=== PATIENT | female | born 1975 | race Caucasian/White ===

== ENCOUNTER 2019-06-15 21:32 | Emergency (ER) | payer SELFPAY ==
[~2019-06-15] VITALS: Ht 165.1 cm; Wt 77.1 kg
[2019-06-15 22:10] VITALS: BP 123/72
--- NOTE | 2019-06-16 00:10 | ED.ADGEN ---
Past History Past Medical History: No Pertinent History Past Surgical History: Appendectomy Smoking: Less than 1pk/day Alcohol Use: Occasionally Drug Use: None Adult General Chief Complaint Chief Complaint ".. I got bad dental pain ... here in this tooth.. it fractured.. Dr. Lange put me on antibiotics.. but I don see him until next week.. the PCN does not seem to be helping... " HPI HPI Patient is a 44 year old female who presents with above and complaints of dental pain. Patient has multiple areas of dental decay. Patient has a fractured tooth #9. Has seen a dentist Dr. Lange and given a prescription of amoxicillin 500 mg 3 times a day. Patient does have follow-up appointment. Patient presents because of increased pain and inability to sleep tonight. No history immunosuppression. No history of trismus. Review of Systems Review of Systems Constitutional: Denies fever or chills [] Eyes: Denies change in visual acuity, redness, or eye pain [] HENT: Denies nasal congestion or sore throat []complaining of dental pain Respiratory: Denies cough or shortness of breath [] Cardiovascular: No additional information not addressed in HPI [] GI: Denies abdominal pain, nausea, vomiting, bloody stools or diarrhea [] : Denies dysuria or hematuria [] Musculoskeletal: Denies back pain or joint pain [] Integument: Denies rash or skin lesions [] Neurologic: Denies headache, focal weakness or sensory changes [] Endocrine: Denies polyuria or polydipsia [] All other systems were reviewed and found to be within normal limits, except as documented in this note. Family History Family History Noncontributory Current Medications Current Medications Current Medications Medications (Trade) Dose Ordered Sig/Zamzam Start Time Stop Time Status Last Admin Dose Admin Ceftriaxone Sodium (Rocephin Im) 1 gm 1X ONCE 06/16/19 01:15 06/16/19 01:16 DC 06/16/19 01:10 1 GM Ketorolac Tromethamine (Toradol Im) 60 mg 1X ONCE 06/16/19 01:15 06/16/19 01:16 DC 06/16/19 01:10 60 MG Oxycodone/ Acetaminophen (Percocet 5/325) 2 tab 1X ONCE 06/16/19 01:15 06/16/19 01:16 DC 06/16/19 01:10 2 TAB Allergies Allergies Allergies Coded Allergies Type Severity Reaction Last Updated Verified No Known Drug Allergies 09/23/13 No Physical Exam Physical Exam Constitutional: in acute distress, non-toxic appearance. [] HENT: Normocephalic, atraumatic, bilateral external ears normal, oropharynx moist, no oral exudates, nose normal. []Dental pain. Fractured tooth #9. Multiple areas of dental decay and gingivitis. Eyes: PERRLA, EOMI, conjunctiva normal, no discharge. [] Neck: Normal range of motion, no tenderness, supple, no stridor. [] Cardiovascular:Heart rate regular rhythm, no murmur [] Lungs & Thorax: Bilateral breath sounds equal at apex with scattered wheezes auscultation [] Abdomen: Bowel sounds normal, soft, no tenderness, no masses, no pulsatile masses. [] Skin: Warm, dry, no erythema, no rash. [] Back: No tenderness, no CVA tenderness. [] Extremities: No tenderness, no cyanosis, no clubbing, ROM intact, no edema. [] Neurologic: Alert and oriented X 3, normal motor function, normal sensory function, no focal deficits noted. [] Psychologic: Affect anxious, judgement normal, mood normal. [] Current Patient Data Vital Signs Vital Signs Date Time Temp Pulse Resp B/P (MAP) Pulse Ox O2 Delivery O2 Flow Rate FiO2 06/16/19 01:10 18 96 Room Air EKG EKG [] Radiology/Procedures Radiology/Procedures [] Course & Med Decision Making Course & Med Decision Making Pertinent Labs and Imaging studies reviewed. (See chart for details) Patient continue antibiotics as directed. Patient to take Tylenol or Ibuprofen pain. Patient take Vicoprofen up to 4 times a day for marked pain. Keep follow- up with Dr. Lange. [] Final Impression Final Impression 1. Fracture Tooth 9 2. Dental Carries[] Dragon Disclaimer Dragon Disclaimer This electronic medical record was generated, in whole or in part, using a voice recognition dictation system. Dragon Disclaimer This chart was dictated in whole or in part using Voice Recognition software in a busy, high-work load, and often noisy Emergency Department environment. It may contain unintended and wholly unrecognized errors or omissions. LENI DE DIOS MD Jun 16, 2019 00:10
[2019-06-16] MEDS ORDERED: HYDR-1179 PO (00:50)
[2019-06-16] MEDS ORDERED: KETOROLAC 60 MG/2 ML VIAL. IM ONE (01:15)
[2019-06-16] MEDS ORDERED: oxyCODONE/APAP 5/325 1 TAB TABLET PO ONE (01:15)
[2019-06-16] MEDS ORDERED: cefTRIAXone IM 1 GM VIAL IM ONE (01:15)
== END 2019-06-16 01:55 | disposition home or self-care (01) ==
LOC: ER 21:32
DX: S02.5XXA Fracture of tooth (traumatic), initial encounter for closed fracture (principal); K02.9 Dental caries, unspecified; F17.200 Nicotine dependence, unspecified, uncomplicated; X58.XXXA Exposure to other specified factors, initial encounter; Y93.89 Activity, other specified; Y92.89 Other specified places as the place of occurrence of the external cause; Y99.8 Other external cause status
CPT/HCPCS: 96372; 99284; J0696; J1885

== ENCOUNTER 2019-09-14 01:08 | Emergency (ER) | payer SELFPAY ==
[~2019-09-14] VITALS: Ht 162.6 cm; Wt 81.6 kg
[~2019-09-14 01:08] MED LIST: HYDR-1179 PO
--- NOTE | 2019-09-14 01:44 | PHYS DOC ---
Past History Past Medical History: Other Additional Past Medical Histor: epigastritis, ulcer Past Surgical History: Appendectomy, Hysterectomy Smoking: Less than 1pk/day Alcohol Use: Occasionally Drug Use: Cocaine Adult General Chief Complaint Chief Complaint: ABDOMINAL PAIN HPI HPI Patient is a 44-year-old female presents with presents with vomiting and diarrhea. This started approximately 2300. Watery stool, reports bilious emesis. Also has chest discomfort now. No worsening chest discomfort with exertion. Nothing makes the symptoms better or worse. She is a smoker. She reports using cocaine last week. She reports to drinking alcohol daily. Her entire abdomen hu rts. No relief with Pepto-Bismol. There is no respirophasic component to the chest pain. No difficulty breathing. No radiation of the discomfort. No diaphoresis. She reports getting the flu vaccine last [] Review of Systems Review of Systems Constitutional: Denies fever or chills [] Eyes: Denies change in visual acuity, redness, or eye pain [] HENT: Denies nasal congestion or sore throat [] Respiratory: Denies cough or shortness of breath [] Cardiovascular: No additional information not addressed in HPI [] GI: See history of present illness[] : Denies dysuria or hematuria [] Musculoskeletal: Denies back pain or joint pain [] Integument: Denies rash or skin lesions [] Neurologic: Denies headache, focal weakness or sensory changes [] Endocrine: Denies polyuria or polydipsia [] All other systems were reviewed and found to be within normal limits, except as documented in this note. Current Medications Current Medications Current Medications Medications (Trade) Dose Ordered Sig/Zamzam Start Time Stop Time Status Last Admin Dose Admin Dicyclomine HCl (Bentyl) 10 mg 1X ONCE 09/14/19 01:45 09/14/19 01:46 UNV Famotidine (Pepcid Vial) 20 mg 1X ONCE 09/14/19 01:45 09/14/19 01:46 UNV Prochlorperazine Edisylate (Compazine) 5 mg 1X ONCE 09/14/19 01:45 09/14/19 01:46 UNV Sodium Chloride 1,000 ml @ 1,000 mls/hr Q1H 09/14/19 01:31 09/14/19 02:30 UNV Allergies Allergies Allergies Coded Allergies Type Severity Reaction Last Updated Verified No Known Drug Allergies 09/23/13 No Physical Exam Physical Exam Constitutional: Well developed, well nourished, mild discomfort, non-toxic appearance. [] HENT: Normocephalic, atraumatic, bilateral external ears normal, oropharynx moist, no oral exudates, nose normal. [] Eyes: PERRLA, EOMI, conjunctiva normal, no discharge. [] Neck: Normal range of motion, no tenderness, supple, no stridor. [] Cardiovascular:Heart rate regular rhythm, no murmur [] Lungs & Thorax: Bilateral breath sounds clear to auscultation [] Abdomen: Bowel sounds normal, soft, diffuse tenderness, no rebound, no guarding, no rigidity, able to sit up and lie back without any difficulty, no masses, no pulsatile masses. [] Skin: Warm, dry, no erythema, no rash. [] Back: No tenderness, no CVA tenderness. [] Extremities: No tenderness, no cyanosis, no clubbing, ROM intact, no edema. [] Neurologic: Alert and oriented X 3, normal motor function, normal sensory function, no focal deficits noted. [] Psychologic: Affect normal, judgement normal, mood normal. [] Current Patient Data Vital Signs Vital Signs Date Time Temp Pulse Resp B/P (MAP) Pulse Ox O2 Delivery O2 Flow Rate FiO2 09/14/19 01:08 97.6 63 28 100 Room Air EKG EKG EKG shows a sinus rhythm at 62 bpm, normal axis, QTC of 455 ms, no ST elevation. Interpreted by me at 0125[] Radiology/Procedures Radiology/Procedures Acute abdominal series shows no evidence of obstruction, perforation, no wide mediastinum, no infiltrate, no effusion, no pneumothorax[] Course & Med Decision Making Course & Med Decision Making Pertinent Labs and Imaging studies reviewed. (See chart for details) Emergency department course: Patient arrived, was placed in bed, and tolerated exam well. She was transported to and from radiology with out any complication. She was given antiemetics and antispasmodics. She was oral intake tolerant while in the emergency department. Findings and plan were discussed with patient and family who voiced understanding. She was discharged in improved condition. Medical decision making: There is no evidence of pneumonia, pneumothorax, hypoxia, acute coronary syndrome, no esophageal rupture, GI obstruction, or perforation. No evidence of anemia. No evidence of oral intake intolerance.[] Dragon Disclaimer Dragon Disclaimer This electronic medical record was generated, in whole or in part, using a voice recognition dictation system. Departure Departure: Impression: Primary Impression: Nausea, vomiting, and diarrhea Additional Impression: Chest pain Disposition: 01 HOME, SELF-CARE Condition: IMPROVED Referrals: VERO DIAMOND MD (PCP) Follow-up in 2 days Patient Instructions: Chest Pain (Nonspecific), Diarrhea, Diet for Diarrhea, Adult, Nausea and Vomiting Additional Instructions: Drink plenty of fluids, frequent small sips. No fatty foods, no milk, and no pepper for the next 48 hours. For the next 48 hours eat a diet rich in carbohydrates with foods such as bananas, rice, applesauce, and toast. Follow-up with your regular doctor in 2 days. Do not use any drugs or medicines that are not prescribed for you. They may kill you! Return to the ER if unable to tolerate liquids, or any other concerns. Scripts Metoclopramide Hcl (REGLAN) 10 Mg Tablet 10 MG PO QID for nausea and vomiting, #30 TAB Prov: YOLIE VELAZQUEZ DO 09/14/19 Hyoscyamine Sulfate (LEVSIN) 0.125 Mg Tablet 0.125 MG PO QID for abdominal pain/cramping, #30 TAB Prov: YOLIE VELAZQUEZ DO 09/14/19 Problem Qualifiers Additional Impression: Chest pain Chest pain type: unspecified Qualified Codes: R07.9 - Chest pain, unspecified YOLIE VELAZQUEZ DO Sep 14, 2019 01:44
[2019-09-14] MEDS ORDERED: DICYCLOMINE 20 MG/2 ML AMPUL. IM ONE (01:45)
[2019-09-14] MEDS ORDERED: IV NORMAL SALINE 1,000ML 1,000 ML IV SCH (01:45)
[2019-09-14] MEDS ORDERED: FAMOTIDINE 20 MG/2 ML VIAL IVP ONE (01:45)
[2019-09-14] MEDS ORDERED: PROCHLORPERAZINE 10 MG/2 ML VIAL. IV ONE (01:45)
[2019-09-14 02:07] LABS: BASO % 0 % (0-3); EOS % 0 % (0-3); HEMATOCRIT 42.7 % (36.0-47.0); HEMOGLOBIN 14.7 g/dL (12.0-15.5); LYMPH # 0.6 x10^3/uL (1.0-4.8); LYMPH % 9 % (24-48); MEAN CORPUSCULAR HEMOGLOBIN 35 pg (25-35); MEAN CORPUSCULAR HGB CONC 35 g/dL (31-37); MEAN CORPUSCULAR VOLUME 100 fL (79-100); MONO # 0.3 x10^3/uL (0.0-1.1); MONO % 4 % (0-9); NEUT # 6.3 x10^3uL (1.8-7.7); NEUT % 87 % (31-73); PLATELET COUNT 263 x10^3/uL (140-400); RED BLOOD COUNT 4.26 x10^6/uL (3.50-5.40); RED CELL DISTRIBUTION WIDTH 12.7 % (11.5-14.5); WHITE BLOOD COUNT 7.3 x10^3/uL (4.0-11.0)
[2019-09-14 02:19] LABS: PREG TEST PT QUAL NEGATIVE (NEG)
--- NOTE | 2019-09-14 02:19 | EKG ---
[address] [address] Test Date: 2019-09-14 Test Time: 01:22:30 Pat Name: ISRAEL CHACON Department: Room: Gender: F Mica Layer: : 1975 Requested By: YOLIE VELAZQUEZ Order Number: [id number] Reading MD: Measurements Intervals [place] Rate: 62 P: -90 ID: [id number] QRS: 69 QRSD: 82 T: 35 QT: 446 QTc: 455 Interpretive Statements SUPRAVENTRICULAR RHYTHM QRS(T) CONTOUR ABNORMALITY CONSIDER INFERIOR MYOCARDIAL DAMAGE POSSIBLY ABNORMAL ECG RI6.01 No previous ECG available for comparison
[2019-09-14 02:30] LABS: ALBUMIN 3.8 g/dL (3.4-5.0); CALCIUM 8.7 mg/dL (8.5-10.1); CREATININE 0.9 mg/dL (0.6-1.0); POTASSIUM 3.6 mmol/L (3.5-5.1); TOTAL BILIRUBIN 0.5 mg/dL (0.2-1.0); TOTAL PROTEIN 7.8 g/dL (6.4-8.2)
[2019-09-14 03:28] LABS: INFLUENZA A PATIENT NEGATIVE (NEGATIVE); INFLUENZA B PATIENT NEGATIVE (NEGATIVE)
[2019-09-14] MEDS ORDERED: METO10TA81 PO (03:49)
[2019-09-14] MEDS ORDERED: HYOS0.1264 PO (03:49)
[2019-09-14 03:56] VITALS: BP 106/63
--- NOTE | 2019-09-14 04:29 | RAD ---
ACUTE ABDOMEN SERIES INDICATION: Vomiting, diarrhea, abdominal pain, chest pain. COMPARISON STUDY: None. FINDINGS: Lungs: Normal lung volume. No pulmonary mass or consolidation. The tracheobronchial tree and hilar structures are normal. Pleura: No pleural effusion or pneumothorax. Heart and Mediastinum: The cardiomediastinal silhouette is normal. The great vessels of the thorax are normal. Abdomen: Nonobstructive bowel gas pattern. No free air. Bones and Soft Tissues: The bones and soft tissues are within normal limits. IMPRESSION: Nonobstructive bowel gas pattern. No focal airspace disease. Electronically signed by: Christian Flynn MD (09/14/2019 4:25 AM) [facility]
== END 2019-09-14 04:02 | disposition home or self-care (01) ==
LOC: ER 01:08
DX: R11.2 Nausea with vomiting, unspecified (principal); R19.7 Diarrhea, unspecified; R07.89 Other chest pain; F17.200 Nicotine dependence, unspecified, uncomplicated
CPT/HCPCS: 36415; 74022; 80053; 83690; 83880; 84484; 84703; 85025; 85610; 85730; 87804; 93005; 96361; 96372; 96374; 96375; 99285; J0500; J0780; J3490; J7030

== ENCOUNTER 2019-12-04 10:42 | Emergency (ER) | payer SELFPAY ==
[~2019-12-04] VITALS: Ht 165.1 cm; Wt 81.0 kg
[~2019-12-04 10:42] MED LIST changes: +HYOS0.1264 PO; +METO10TA81 PO
[2019-12-04 10:55] VITALS: BP 105/66
[2019-12-04] MEDS ORDERED: IV NORMAL SALINE 1,000ML 1,000 ML IV ONE (11:00)
[2019-12-04] MEDS ORDERED: ONDANSETRON PF 4 MG/2 ML VIAL. IVP ONE (11:00)
[2019-12-04] MEDS ORDERED: KETOROLAC 15 MG/ML VIAL. IVP ONE (11:00)
[2019-12-04] MEDS ORDERED: FAMOTIDINE 20 MG/2 ML VIAL IVP ONE (11:00)
[2019-12-04] MEDS ORDERED: IOHEXOL 300 MG/ML 75 ML VIAL. IV ONE (11:15)
[2019-12-04 11:37] LABS: BASO % 1 % (0-3); EOS # 0.1 x10^3/uL (0.0-0.7); EOS % 3 % (0-3); HEMATOCRIT 44.1 % (36.0-47.0); HEMOGLOBIN 14.9 g/dL (12.0-15.5); LYMPH # 0.9 x10^3/uL (1.0-4.8); LYMPH % 26 % (24-48); MEAN CORPUSCULAR HEMOGLOBIN 34 pg (25-35); MEAN CORPUSCULAR HGB CONC 34 g/dL (31-37); MEAN CORPUSCULAR VOLUME 100 fL (79-100); MONO # 0.5 x10^3/uL (0.0-1.1); MONO % 14 % (0-9); NEUT # 1.9 x10^3uL (1.8-7.7); NEUT % 56 % (31-73); PLATELET COUNT 234 x10^3/uL (140-400); RED CELL DISTRIBUTION WIDTH 12.9 % (11.5-14.5); WHITE BLOOD COUNT 3.4 x10^3/uL (4.0-11.0)
[2019-12-04 11:53] LABS: ANION GAP 10 (6-14); BLOOD UREA NITROGEN 10 mg/dL (7-20); BUN/CREATININE RATIO 14 (6-20); CALCIUM 8.7 mg/dL (8.5-10.1); CARBON DIOXIDE 25 mmol/L (21-32); CHLORIDE 104 mmol/L (98-107); CREATININE 0.7 mg/dL (0.6-1.0); GFR 90.9; GLUCOSE 99 mg/dL (70-99); SODIUM 139 mmol/L (136-145)
--- NOTE | 2019-12-04 12:03 | PHYS DOC ---
Past History Past Medical History: No Pertinent History Additional Past Medical Histor: epigastritis, ulcer Past Surgical History: Appendectomy, Hysterectomy Smoking: Less than 1pk/day Additional Smoking Information: pack a day Alcohol Use: Heavy Additional Alcohol Information: 3-4 times a week Drug Use: Cocaine Adult General Chief Complaint Chief Complaint: ABDOMINAL PAIN HPI HPI Patient is a [age] year old [sex] who presents with [] Review of Systems Review of Systems Constitutional: Denies fever or chills [] Eyes: Denies change in visual acuity, redness, or eye pain [] HENT: Denies nasal congestion or sore throat [] Respiratory: Denies cough or shortness of breath [] Cardiovascular: No additional information not addressed in HPI [] GI: Denies abdominal pain, nausea, vomiting, bloody stools or diarrhea [] : Denies dysuria or hematuria [] Musculoskeletal: Denies back pain or joint pain [] Integument: Denies rash or skin lesions [] Neurologic: Denies headache, focal weakness or sensory changes [] Endocrine: Denies polyuria or polydipsia [] All other systems were reviewed and found to be within normal limits, except as documented in this note. Current Medications Current Medications Current Medications Medications (Trade) Dose Ordered Sig/Zamzam Start Time Stop Time Status Last Admin Dose Admin Famotidine (Pepcid Vial) 20 mg 1X ONCE 12/04/19 11:00 12/04/19 11:05 DC 12/04/19 11:24 20 MG Iohexol (Omnipaque 300 Mg/ml) 75 ml 1X ONCE 12/04/19 11:15 12/04/19 11:16 DC Ketorolac Tromethamine (Toradol 15mg Vial) 15 mg 1X ONCE 12/04/19 11:00 12/04/19 11:05 DC 12/04/19 11:25 15 MG Ondansetron HCl (Zofran) 4 mg 1X ONCE 12/04/19 11:00 12/04/19 11:05 DC 12/04/19 11:25 4 MG Sodium Chloride 1,000 ml @ 1,000 mls/hr 1X ONCE 12/04/19 11:00 12/04/19 11:59 DC 12/04/19 11:00 1,000 MLS/HR Allergies Allergies Allergies Coded Allergies Type Severity Reaction Last Updated Verified No Known Drug Allergies 09/23/13 No Physical Exam Physical Exam Constitutional: Well developed, well nourished, no acute distress, non-toxic appearance. [] HENT: Normocephalic, atraumatic, bilateral external ears normal, oropharynx moist, no oral exudates, nose normal. [] Eyes: PERRLA, EOMI, conjunctiva normal, no discharge. [] Neck: Normal range of motion, no tenderness, supple, no stridor. [] Cardiovascular:Heart rate regular rhythm, no murmur [] Lungs & Thorax: Bilateral breath sounds clear to auscultation [] Abdomen: Bowel sounds normal, soft, no tenderness, no masses, no pulsatile masses. [] Skin: Warm, dry, no erythema, no rash. [] Back: No tenderness, no CVA tenderness. [] Extremities: No tenderness, no cyanosis, no clubbing, ROM intact, no edema. [] Neurologic: Alert and oriented X 3, normal motor function, normal sensory function, no focal deficits noted. [] Psychologic: Affect normal, judgement normal, mood normal. [] Current Patient Data Vital Signs Vital Signs Date Time Temp Pulse Resp B/P (MAP) Pulse Ox O2 Delivery O2 Flow Rate FiO2 12/04/19 10:55 97.3 70 18 105/66 (79) 99 Room Air Lab Results Laboratory Tests Test 12/04/19 11:00 12/04/19 11:16 White Blood Count 3.4 x10^3/uL (4.0-11.0) L Red Blood Count 4.40 x10^6/uL (3.50-5.40) Hemoglobin 14.9 g/dL (12.0-15.5) Hematocrit 44.1 % (36.0-47.0) Mean Corpuscular Volume 100 fL (79-100) Mean Corpuscular Hemoglobin 34 pg (25-35) Mean Corpuscular Hemoglobin Concent 34 g/dL (31-37) Red Cell Distribution Width 12.9 % (11.5-14.5) Platelet Count 234 x10^3/uL (140-400) Neutrophils (%) (Auto) 56 % (31-73) Lymphocytes (%) (Auto) 26 % (24-48) Monocytes (%) (Auto) 14 % (0-9) H Eosinophils (%) (Auto) 3 % (0-3) Basophils (%) (Auto) 1 % (0-3) Neutrophils # (Auto) 1.9 x10^3uL (1.8-7.7) Lymphocytes # (Auto) 0.9 x10^3/uL (1.0-4.8) L Monocytes # (Auto) 0.5 x10^3/uL (0.0-1.1) Eosinophils # (Auto) 0.1 x10^3/uL (0.0-0.7) Basophils # (Auto) 0.0 x10^3/uL (0.0-0.2) Sodium Level 139 mmol/L (136-145) Potassium Level 4.0 mmol/L (3.5-5.1) Chloride Level 104 mmol/L (98-107) Carbon Dioxide Level 25 mmol/L (21-32) Anion Gap 10 (6-14) Blood Urea Nitrogen 10 mg/dL (7-20) Creatinine 0.7 mg/dL (0.6-1.0) Estimated GFR (Cockcroft-Gault) 90.9 BUN/Creatinine Ratio 14 (6-20) Glucose Level 99 mg/dL (70-99) Lactic Acid Level 0.6 mmol/L (0.4-2.0) Calcium Level 8.7 mg/dL (8.5-10.1) Magnesium Level Pending Total Bilirubin Pending Aspartate Amino Transferase (AST) Pending Alanine Aminotransferase (ALT) Pending Alkaline Phosphatase Pending Creatine Kinase Pending Creatine Kinase MB (Mass) Pending Creatine Kinase MB Relative Index Pending Troponin I Quantitative < 0.017 ng/mL (0-0.055) Total Protein Pending Albumin Pending Albumin/Globulin Ratio Pending Lipase Pending EKG EKG @1110 Sinus bradycardia at 53bpm, p wave inversion II, III, and aVF, NO ST elevation Radiology/Procedures Radiology/Procedures PROCEDURE: CT ABD PELV W/ IV CONTRST ONLY Exam performed: CT scan of the abdomen and pelvis with contrast Clinical Indication: Right upper quadrant pain Date of Service: 12/04/2019 comparison: Acute abdominal series from 09/14/2019 Technique: Contiguous helical acquisitions are obtained from the lung bases to the pelvis during intravenous administration of [75 cc of Omnipaque 300]. Sagittal and coronal reformatted images were obtained and reviewed. CT abdomen findings: The lung bases appear essentially clear. Visualized heart is normal. The liver,gall bladder and pancreas appears unremarkable. There is a low attenuating lesion in the spleen perhaps a cyst Both adrenal glands and bilateral kidneys appear normal with symmetric excretion of contrast via both kidneys. The small bowel loops appear nondilated and unremarkable. Aorta is normal in caliber. There is no retroperitoneal lymphadenopathy or mass lesions. No bowel related inflammatory stranding is noted. The urinary bladder is decompressed. Hysterectomy, no adnexal masses seen. Interrogation of bone windows demonstrates no obvious bony abnormality. Sagittal and coronal reformatted images were obtained and reviewed which demonstrate no additional findings. Impression abdomen and pelvis : 1. No acute intra-abdominal or pelvic process is detected. 2. Low attenuating nodule in the spleen perhaps a cyst or atypical hemangioma. Evaluation with left upper quadrant ultrasound on a nonemergent basis may confirm cystic nature of the nodule. PQRS Compliance Statement: One or more of the following individualized dose reduction techniques were utilized for this examination: 1. Automated exposure control 2. Adjustment of the mA and/or kV according to patient size 3. Use of iterative reconstruction technique Electronically signed by: Nithya Cervantes MD (12/04/2019 12:37 PM) [id number] Course & Med Decision Making Course & Med Decision Making Pertinent Labs and Imaging studies reviewed. (See chart for details) [] Dragon Disclaimer Dragon Disclaimer This electronic medical record was generated, in whole or in part, using a voice recognition dictation system. Departure Departure: Impression: Primary Impression: Abdominal pain Additional Impression: Abnormal CT scan Disposition: 01 HOME, SELF-CARE Condition: STABLE Referrals: PCP,NO (PCP) MIRNA CASH MD Patient Instructions: Abdominal Pain, [id number], Incidental Abdominal Radiological Finding Additional Instructions: You were given a copy of your recent CT results. Please follow closely with your doctor or a GI specialist for further evaluation. Scripts Famotidine (PEPCID) 20 Mg Tablet 1 TAB PO BID for Gastritis, #10 TAB Prov: UMESH DAVE DO 12/04/19 Hyoscyamine Sulfate (LEVSIN-SL) 0.125 Mg Tab.subl 0.125 MG SL Q4-6HRS PRN for PAIN, #14 TAB Prov: UMESH DAVE DO 12/04/19 Ondansetron (ONDANSETRON ODT) 4 Mg Tab.rapdis 1 TAB PO PRN Q6-8HRS PRN for NAUSEA, #16 TAB Prov: UMESH DAVE DO 12/04/19 Problem Qualifiers Primary Impression: Abdominal pain Abdominal location: lower abdomen, unspecified Qualified Codes: R10.30 - Lower abdominal pain, unspecified UMESH DAVE DO Dec 04, 2019 12:03
[2019-12-04 12:05] LABS: ALBUMIN 3.5 g/dL (3.4-5.0); ALBUMIN/GLOBULIN RATIO 0.9 (1.0-1.7); ALK PHOS 62 U/L (46-116); ALT (SGPT) 19 U/L (14-59); AST (SGOT) 15 U/L (15-37); LIPASE 94 U/L (73-393); MAGNESIUM 1.7 mg/dL (1.8-2.4); TOTAL BILIRUBIN 0.3 mg/dL (0.2-1.0); TOTAL PROTEIN 7.2 g/dL (6.4-8.2)
--- NOTE | 2019-12-04 12:40 | RAD ---
Exam performed: CT scan of the abdomen and pelvis with contrast Clinical Indication: Right upper quadrant pain Date of Service: 12/04/2019 comparison: Acute abdominal series from 09/14/2019 Technique: Contiguous helical acquisitions are obtained from the lung bases to the pelvis during intravenous administration of [75 cc of Omnipaque 300]. Sagittal and coronal reformatted images were obtained and reviewed. CT abdomen findings: The lung bases appear essentially clear. Visualized heart is normal. The liver,gall bladder and pancreas appears unremarkable. There is a low attenuating lesion in the spleen perhaps a cyst Both adrenal glands and bilateral kidneys appear normal with symmetric excretion of contrast via both kidneys. The small bowel loops appear nondilated and unremarkable. Aorta is normal in caliber. There is no retroperitoneal lymphadenopathy or mass lesions. No bowel related inflammatory stranding is noted. The urinary bladder is decompressed. Hysterectomy, no adnexal masses seen. Interrogation of bone windows demonstrates no obvious bony abnormality. Sagittal and coronal reformatted images were obtained and reviewed which demonstrate no additional findings. Impression abdomen and pelvis : 1. No acute intra-abdominal or pelvic process is detected. 2. Low attenuating nodule in the spleen perhaps a cyst or atypical hemangioma. Evaluation with left upper quadrant ultrasound on a nonemergent basis may confirm cystic nature of the nodule. PQRS Compliance Statement: One or more of the following individualized dose reduction techniques were utilized for this examination: 1. Automated exposure control 2. Adjustment of the mA and/or kV according to patient size 3. Use of iterative reconstruction technique Electronically signed by: Nithya Cervantes MD (12/04/2019 12:37 PM) [id number]
[2019-12-04] MEDS ORDERED: FAMO-63 PO (13:40)
[2019-12-04] MEDS ORDERED: HYOS0.1265 SL (13:40)
[2019-12-04] MEDS ORDERED: ONDA4TAB12 PO (13:40)
[2019-12-04 14:44] LABS: BILIRUBIN,URINE NEG (NEG); CLARITY,URINE CLEAR; COLOR,URINE YELLOW; GLUCOSE,URINE NEG (NEG)
[2019-12-04 14:45] LABS: NITRITE,URINE NEG (NEG); UROBILINOGEN,URINE 0.2 mg/dL (0.2 mg/dL)
--- NOTE | 2019-12-04 17:55 | EKG ---
[address] [address] Test Date: 2019-12-04 Test Time: 11:10:24 Pat Name: ISRAEL CHACON Department: Room: Gender: F Emergency Nurse: : 1975 Requested By: UMESH DAVE Order Number: [id number] Reading MD: Measurements Intervals [place] Rate: 53 P: -77 [place]: 112 QRS: 90 QRSD: 78 T: 66 QT: 444 QTc: 419 Interpretive Statements SUPRAVENTRICULAR RHYTHM OTHERWISE NORMAL ECG RI6.01 No previous ECG available for comparison
== END 2019-12-04 14:00 | disposition home or self-care (01) ==
LOC: ER 10:42
DX: R10.30 Lower abdominal pain, unspecified (principal); R10.11 Right upper quadrant pain; R93.89 Abnormal findings on diagnostic imaging of other specified body structures; F17.200 Nicotine dependence, unspecified, uncomplicated; F10.20 Alcohol dependence, uncomplicated; Y90.9 Presence of alcohol in blood, level not specified
CPT/HCPCS: 36415; 74177; 80053; 81003; 82553; 83605; 83690; 83735; 84484; 85025; 85610; 85730; 93005; 96374; 96375; 99285; J1885; J2405; J3010; J3490; Q9967; J7030

== ENCOUNTER 2020-02-11 16:13 | Emergency (ER) | payer SELFPAY ==
[~2020-02-11] VITALS: Ht 165.1 cm; Wt 81.7 kg
[~2020-02-11 16:13] MED LIST changes: +FAMO-63 PO; +HYOS0.1265 SL; +ONDA4TAB12 PO
[2020-02-11 17:10] VITALS: BP 99/60
--- NOTE | 2020-02-11 17:10 | RAD ---
Single view chest dated 02/11/2020: Comparison made to 09/23/2013. Clinical Indication: Cough and chest pain. Findings: Single upright portable exam of the chest was performed. Heart size and mediastinal contours are within normal limits given technique. The lungs are clear without evidence of focal consolidation. Mild bilateral hilar fullness, similar to prior study. No pleural effusion or pneumothorax. Impression:: No acute radiographic abnormality. Stable findings compared to 09/23/2013. Electronically signed by: Dennis Figueroa MD (02/11/2020 5:06 PM) [facility]
--- NOTE | 2020-02-11 17:24 | PHYS DOC ---
Past History Past Medical History: GERD Additional Past Medical Histor: epigastritis, ulcer Past Surgical History: Appendectomy, Hysterectomy Smoking: Cigarettes, Less than 1pk/day Alcohol Use: Heavy Additional Alcohol Information: 6x 24 oz beers "not every single day but 3-4 times week" per pt recall; last drink last night Drug Use: Cocaine Social History Narrative: used yesterday General Adult EDM: Chief Complaint: COUGH HPI: HPI: Patient is a 44-year-old female who presents to ER today for evaluation of a nonproductive cough that has been going on for several weeks. Patient is a heavy smoker. Patient also admitted abusing methamphetamine cocaine and marijuana. Patient deny any fever today. Patient complained of generalized weakness when she woke up this morning. Patient denies any abdominal pain. Patient also complains of diarrhea. Patient denies suicidal ideation, denies homicidal ideation. Patient denies that she been exposed to anybody who tested positive for COVID-19. Review of Systems: Review of Systems: Constitutional: Denies fever or chills Eyes: Denies change in visual acuity HENT: Denies nasal congestion or sore throat Respiratory: Positive for nonproductive cough and trouble breathing, Cardiovascular: Denies chest pain or edema GI: Denies abdominal pain, nausea, vomiting, bloody stools or diarrhea : Denies dysuria Musculoskeletal: Denies back pain or joint pain Integument: Denies rash Neurologic: Denies headache, focal weakness or sensory changes Endocrine: Denies polyuria or polydipsia Lymphatic: Denies swollen glands Psychiatric: Denies depression or anxiety Heart Score: Risk Factors: Risk Factors: DM, Current or recent (<one month) smoker, HTN, HLP, family history of CAD, obesity. Risk Scores: Score 0 - 3: 2.5% MACE over next 6 weeks - Discharge Home Score 4 - 6: 20.3% MACE over next 6 weeks - Admit for Clinical Observation Score 7 - 10: 72.7% MACE over next 6 weeks - Early Invasive Strategies Allergies: Allergies: Allergies Coded Allergies Type Severity Reaction Last Updated Verified No Known Drug Allergies 02/11/20 No Physical Exam: PE: Constitutional: Well developed, well nourished, no acute distress, non-toxic appearance. [] HENT: Normocephalic, atraumatic, bilateral external ears normal, oropharynx moist, no oral exudates, nose normal. [] Eyes: PERRLA, EOMI, conjunctiva normal, no discharge. [] Neck: Normal range of motion, no tenderness, supple, no stridor. [] Cardiovascular:Heart rate regular rhythm, no murmur [] Lungs & Thorax: Bilateral breath sounds clear to auscultation [] Abdomen: Bowel sounds normal, soft, no tenderness, no masses, no pulsatile masses. [] Skin: Warm, dry, no erythema, no rash. [] Back: No tenderness, no CVA tenderness. [] Extremities: No tenderness, no cyanosis, no clubbing, ROM intact, no edema. [] Neurologic: Alert and oriented X 3, normal motor function, normal sensory function, no focal deficits noted. [] Psychologic: Affect normal, judgement normal, mood normal. [] Current Patient Data: Vital Signs: Vital Signs Date Time Temp Pulse Resp B/P (MAP) Pulse Ox O2 Delivery O2 Flow Rate FiO2 02/11/20 16:13 98.4 80 18 127/66 (86) 96 Room Air EKG: EKG: [] EKG was done at 1703, heart rate of 69 bpm, normal sinus rhythm, no ST segment elevation. Normal QT interval. EKG was read by this physician Radiology/Procedures: Radiology/Procedures: [][address] [address] IMAGING REPORT Signed PATIENT: ISRAEL CHACON ACCOUNT: [id number] : 1975 LOCATION: ER AGE: 44 SEX: F EXAM STATUS: REG ER ORD. PHYSICIAN: JAMES HILL DO REASON: cough, chest pain PROCEDURE: CHEST AP ONLY Single view chest dated 02/11/2020: Comparison made to 09/23/2013. Clinical Indication: Cough and chest pain. Findings: Single upright portable exam of the chest was performed. Heart size and mediastinal contours are within normal limits given technique. The lungs are clear without evidence of focal consolidation. Mild bilateral hilar fullness, similar to prior study. No pleural effusion or pneumothorax. Impression:: No acute radiographic abnormality. Stable findings compared to 09/23/2013. Electronically signed by: Dennis Figueroa MD (02/11/2020 5:06 PM) [facility] [place] DICTATED AND SIGNED BY: DENNIS FIGUEROA MD DATE: 02/11/20 1748 CC: YARITZA CHIN; JAMES HILL DO ~ Course & Med Decision Making: Course & Med Decision Making Pertinent Labs and Imaging studies reviewed. (See chart for details) Patient is a 44-year-old female who presents to ER today for evaluation of nonproductive cough for 2 weeks. Patient is a smoker, chest x-ray did not show any acute problem, EKG was normal sinus rhythm. Patient was diagnosed with bronchitis. Patient was discharged home with Zithromax and prednisone. Dragon Disclaimer: Dragon Disclaimer: This electronic medical record was generated, in whole or in part, using a voice recognition dictation system. Departure Departure: Impression: Primary Impression: Acute bronchitis Disposition: 01 HOME/RESIDENCE PRIOR TO ADM Condition: STABLE Referrals: PCPYARITZA (PCP) follow up with your doctor next week Patient Instructions: Acute Bronchitis Additional Instructions: stop smoking. Scripts Prednisone (PREDNISONE) 20 Mg Tablet 1 TAB PO DAILY for bronchitis, #7 TAB Prov: JAMES HILL DO 02/11/20 Azithromycin (ZITHROMAX) 250 Mg Tablet 1 PKG PO UD for bronchitis, #6 TAB Prov: JAMES HILL DO 02/11/20 JAMES HILL DO February 11, 2020 17:24
[2020-02-11] MEDS ORDERED: PRED20TA PO (17:35)
[2020-02-11] MEDS ORDERED: AZIT250T PO (17:35)
--- NOTE | 2020-02-11 17:47 | EKG ---
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
== END 2020-02-11 17:31 | disposition home or self-care (01) ==
LOC: ER 16:13
DX: J20.9 Acute bronchitis, unspecified (principal); R19.7 Diarrhea, unspecified; K21.9 Gastro-esophageal reflux disease without esophagitis; F17.210 Nicotine dependence, cigarettes, uncomplicated; F15.10 Other stimulant abuse, uncomplicated; F12.10 Cannabis abuse, uncomplicated; F14.10 Cocaine abuse, uncomplicated; F10.20 Alcohol dependence, uncomplicated; Y90.9 Presence of alcohol in blood, level not specified
CPT/HCPCS: 71045; 93005; 99284

== ENCOUNTER 2020-07-18 15:26 | Emergency (ER) | payer SELFPAY ==
[~2020-07-18] VITALS: Ht 165.1 cm; Wt 86.2 kg
[~2020-07-18 15:26] MED LIST changes: +AZIT250T PO; +PRED20TA PO
[2020-07-18] MEDS ORDERED: IPRATRPIUM/ALBUTEROL 0.5/2.5MG 3 ML NEBU. NEB ONE (16:30)
[2020-07-18 16:34] LABS: BASO % 1 % (0-3); EOS # 0.1 x10^3/uL (0.0-0.7); EOS % 2 % (0-3); HEMOGLOBIN 15.5 g/dL (12.0-15.5); LYMPH # 1.6 x10^3/uL (1.0-4.8); LYMPH % 29 % (24-48); MEAN CORPUSCULAR HEMOGLOBIN 35 pg (25-35); MEAN CORPUSCULAR HGB CONC 34 g/dL (31-37); MEAN CORPUSCULAR VOLUME 103 fL (79-100); MONO # 0.6 x10^3/uL (0.0-1.1); MONO % 11 % (0-9); NEUT # 3.2 x10^3uL (1.8-7.7); NEUT % 57 % (31-73); PLATELET COUNT 284 x10^3/uL (140-400); RED BLOOD COUNT 4.49 x10^6/uL (3.50-5.40); RED CELL DISTRIBUTION WIDTH 12.9 % (11.5-14.5); WHITE BLOOD COUNT 5.5 x10^3/uL (4.0-11.0)
[2020-07-18 16:37] LABS: CALCIUM 8.7 mg/dL (8.5-10.1); CREATININE 0.9 mg/dL (0.6-1.0); GFR 67.7
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
[2020-07-18 16:45] LABS: ALBUMIN 3.8 g/dL (3.4-5.0); TOTAL BILIRUBIN 0.3 mg/dL (0.2-1.0); TOTAL PROTEIN 7.6 g/dL (6.4-8.2)
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
--- NOTE | 2020-07-18 17:20 | EKG ---
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
[2020-07-18] MEDS ORDERED: ONDANSETRON PF 4 MG/2 ML VIAL. ONE (17:37)
[2020-07-18] MEDS ORDERED: MORPHINE SULFATE 2 MG/ML DISP.SYRIN. ONE (17:37)
[2020-07-18 17:43] VITALS: BP 105/62
[2020-07-18] MEDS ORDERED: IV NORMAL SALINE 1,000ML 1,000 ML IV ONE (17:45)
[2020-07-18] MEDS ORDERED: ONDANSETRON PF 4 MG/2 ML VIAL. IVP ONE (17:45)
[2020-07-18] MEDS ORDERED: MORPHINE SULFATE 2 MG/ML DISP.SYRIN. IV ONE (17:45)
[2020-07-18] MEDS ORDERED: ALBU2.5V8 IH (18:08)
[2020-07-18] MEDS ORDERED: methylPREDNISolone SOD SUCC PF 125 MG/2 ML VIAL. IV ONE (18:15)
[2020-07-18 18:38] LABS: CLARITY,URINE CLEAR; COLOR,URINE YELLOW
[2020-07-18 18:39] LABS: BILIRUBIN,URINE NEG (NEG); GLUCOSE,URINE NEG (NEG); NITRITE,URINE POS (NEG); UROBILINOGEN,URINE 0.2 mg/dL (0.2 mg/dL)
[2020-07-18 18:40] LABS: BACTERIA,URINE FEW /HPF (0-FEW); RBC,URINE 0 /HPF (0-2); SQUAMOUS EPITHELIAL CELL,UR FEW /LPF
== END 2020-07-18 18:34 | disposition home or self-care (01) ==
LOC: ER 15:26
DX: J06.9 Acute upper respiratory infection, unspecified (principal); J44.9 Chronic obstructive pulmonary disease, unspecified; K21.9 Gastro-esophageal reflux disease without esophagitis; F17.210 Nicotine dependence, cigarettes, uncomplicated
CPT/HCPCS: 36415; 71045; 80053; 81001; 84484; 85025; 87086; 93005; 94640; 96361; 96374; 96375; 99285; J2270; J2405; J2930; J7030

== ENCOUNTER 2020-11-14 16:51 | Emergency (ER) | payer OTHER ==
[~2020-11-14] VITALS: Ht 165.1 cm; Wt 86.2 kg
[~2020-11-14 16:51] MED LIST changes: +ALBU2.5V8 IH
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
[2020-11-14] MEDS ORDERED: HYDROcodone/APAP 5/325MG 1 TAB TABLET PO ONE (19:00)
[2020-11-14] MEDS ORDERED: CYCLOBENZAPRINE 10 MG TABLET. PO ONE (19:00)
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
[2020-11-14] MEDS ORDERED: CYCL-331 PO (20:25)
[2020-11-14 20:30] VITALS: BP 130/88
== END 2020-11-14 20:33 | disposition home or self-care (01) ==
LOC: ER 16:51
DX: M54.2 Cervicalgia (principal); M54.9 Dorsalgia, unspecified; J44.9 Chronic obstructive pulmonary disease, unspecified; K21.9 Gastro-esophageal reflux disease without esophagitis; F17.210 Nicotine dependence, cigarettes, uncomplicated; Z90.89 Acquired absence of other organs; Z90.710 Acquired absence of both cervix and uterus; V98.8XXA Other specified transport accidents, initial encounter; Y93.89 Activity, other specified; Y92.89 Other specified places as the place of occurrence of the external cause; Y99.8 Other external cause status
CPT/HCPCS: 70450; 72125; 72220; 99285

== ENCOUNTER 2021-03-12 17:56 | Emergency (ER) | payer SELFPAY ==
[~2021-03-12] VITALS: Ht 165.1 cm; Wt 84.6 kg
[~2021-03-12 17:56] MED LIST changes: +CYCL-331 PO
[2021-03-12 18:07] VITALS: BP 116/66
--- NOTE | 2021-03-12 18:54 | RAD ---
Exam: Chest 2 views INDICATION: Cough, congestion TECHNIQUE: Frontal and lateral views of the chest Comparisons: None FINDINGS: The cardiomediastinal silhouette and pulmonary vessels are within normal limits. The lung and pleural spaces are clear. IMPRESSION: No acute cardiopulmonary process. Electronically signed by: Madeline Stahl MD (03/12/2021 6:51 PM) [facility]
[2021-03-12 18:58] LABS: BASO % 1 % (0-3); EOS # 0.2 x10^3/uL (0.0-0.7); EOS % 3 % (0-3); HEMATOCRIT 42.9 % (36.0-47.0); HEMOGLOBIN 14.6 g/dL (12.0-15.5); LYMPH # 2.2 x10^3/uL (1.0-4.8); LYMPH % 37 % (24-48); MEAN CORPUSCULAR HEMOGLOBIN 34 pg (25-35); MEAN CORPUSCULAR HGB CONC 34 g/dL (31-37); MEAN CORPUSCULAR VOLUME 100 fL (79-100); MONO # 0.7 x10^3/uL (0.0-1.1); MONO % 11 % (0-9); NEUT # 2.9 x10^3uL (1.8-7.7); NEUT % 48 % (31-73); PLATELET COUNT 273 x10^3/uL (140-400); RED BLOOD COUNT 4.28 x10^6/uL (3.50-5.40); RED CELL DISTRIBUTION WIDTH 13.1 % (11.5-14.5)
--- NOTE | 2021-03-12 19:11 | PHYS DOC ---
Past History Past Medical History: COPD, GERD Additional Past Medical Histor: epigastritis, ulcer (FIDEL DIAZ APRN) Past Surgical History: Appendectomy, Hysterectomy (FIDEL DIAZ APRN) Smoking: Cigarettes, Less than 1pk/day Alcohol Use: Occasionally Drug Use: Cocaine (FIDEL DIAZ APRN) General Adult EDM: Chief Complaint: COUGH HPI: HPI: Patient is a 45-year-old female presents with cough, shortness of breath for the past 5 days. Patient states "I have been coughing up white thick, mucus and I keep waking up at night". Patient denies fevers. Denies nausea/vomiting/diarrhea. Patient reports she smokes 1 to 2 packs a day depen ding on how much she has been drinking. Patient has history of ulcers. (FIDEL DIAZ APRN) Review of Systems: Review of Systems: Constitutional: Denies fever or chills Eyes: Denies change in visual acuity HENT: Denies nasal congestion or sore throat Respiratory: Reports cough and shortness of breath Cardiovascular: Denies chest pain or edema GI: Denies abdominal pain, nausea, vomiting, bloody stools or diarrhea : Denies dysuria Musculoskeletal: Denies back pain or joint pain Integument: Denies rash Neurologic: Denies headache, focal weakness or sensory changes Endocrine: Denies polyuria or polydipsia Lymphatic: Denies swollen glands Psychiatric: Denies depression or anxiety (FIDEL DIAZ APRN) Allergies: Allergies: Allergies Coded Allergies Type Severity Reaction Last Updated Verified No Known Drug Allergies 03/12/21 No (FIDEL DIAZ APRN) Physical Exam: PE: Constitutional: Well developed, well nourished, no acute distress, non-toxic appearance. [] HENT: Normocephalic, atraumatic, bilateral external ears normal, oropharynx moist, no oral exudates, nose normal. [] Eyes: PERRLA, EOMI, conjunctiva normal, no discharge. [] Neck: Normal range of motion, no tenderness, supple, no stridor. [] Cardiovascular:Heart rate regular rhythm, no murmur [] Lungs & Thorax: Bilateral breath sounds clear to auscultation [] Abdomen: Bowel sounds normal, soft, no tenderness, no masses, no pulsatile masses. [] Skin: Warm, dry, no erythema, no rash. [] Back: No tenderness, no CVA tenderness. [] Extremities: No tenderness, no cyanosis, no clubbing, ROM intact, no edema. [] Neurologic: Alert and oriented X 3, normal motor function, normal sensory function, no focal deficits noted. [] Psychologic: Affect normal, judgement normal, mood normal. [] (FIDEL DIAZ APRN) Current Patient Data: Labs: Laboratory Tests Test 03/12/21 18:42 White Blood Count 6.0 x10^3/uL (4.0-11.0) Red Blood Count 4.28 x10^6/uL (3.50-5.40) Hemoglobin 14.6 g/dL (12.0-15.5) Hematocrit 42.9 % (36.0-47.0) Mean Corpuscular Volume 100 fL (79-100) Mean Corpuscular Hemoglobin 34 pg (25-35) Mean Corpuscular Hemoglobin Concent 34 g/dL (31-37) Red Cell Distribution Width 13.1 % (11.5-14.5) Platelet Count 273 x10^3/uL (140-400) Neutrophils (%) (Auto) 48 % (31-73) Lymphocytes (%) (Auto) 37 % (24-48) Monocytes (%) (Auto) 11 % (0-9) H Eosinophils (%) (Auto) 3 % (0-3) Basophils (%) (Auto) 1 % (0-3) Neutrophils # (Auto) 2.9 x10^3uL (1.8-7.7) Lymphocytes # (Auto) 2.2 x10^3/uL (1.0-4.8) Monocytes # (Auto) 0.7 x10^3/uL (0.0-1.1) Eosinophils # (Auto) 0.2 x10^3/uL (0.0-0.7) Basophils # (Auto) 0.0 x10^3/uL (0.0-0.2) Vital Signs: Vital Signs Date Time Temp Pulse Resp B/P (MAP) Pulse Ox O2 Delivery O2 Flow Rate FiO2 03/12/21 18:07 98.2 77 24 116/66 (83) 92 Room Air (FIDEL DIAZ APRN) EKG: EKG: [] (FIDEL DIAZ APRN) Radiology/Procedures: Radiology/Procedures: []Exam: Chest 2 views INDICATION: Cough, congestion TECHNIQUE: Frontal and lateral views of the chest Comparisons: None FINDINGS: The cardiomediastinal silhouette and pulmonary vessels are within normal limits. The lung and pleural spaces are clear. IMPRESSION: No acute cardiopulmonary process. Electronically signed by: Madeline Stahl MD (03/12/2021 6:51 PM) [facility] (FIDEL DIAZ APRN) Heart Score: C/O Chest Pain: No Risk Factors: Risk Factors: DM, Current or recent (<one month) smoker, HTN, HLP, family history of CAD, obesity. Risk Scores: Score 0 - 3: 2.5% MACE over next 6 weeks - Discharge Home Score 4 - 6: 20.3% MACE over next 6 weeks - Admit for Clinical Observation Score 7 - 10: 72.7% MACE over next 6 weeks - Early Invasive Strategies (FIDEL DIAZ APRN) Course & Med Decision Making: Course & Med Decision Making Pertinent Labs and Imaging studies reviewed. (See chart for details) [] 45-year-old female presents with cough and shortness of breath for the last 5 days. Chest x-ray negative for any acute abnormalities. Low risk Wells and negative PERC. Patient given DuoNeb, dexamethasone in the emergency room and doxycycline prescription. (FIDEL DIAZ APRN) Course & Med Decision Making Did not see or evaluate patient. Agree with CLINICAL PHLEBOTOMIST's work-up and disposition per note. (EUNICE MCGREGOR MD) Dragon Disclaimer: Dragon Disclaimer: This electronic medical record was generated, in whole or in part, using a voice recognition dictation system. (FIDEL DIAZ APRN) Departure Departure: Impression: Primary Impression: COPD exacerbation Disposition: HOME / SELF CARE / HOMELESS Condition: STABLE Referrals: PCP,NO (PCP) Patient Instructions: Shortness of Breath, [id number] Additional Instructions: You were seen in the emergency room for shortness of breath. Your chest x-ray was negative. I am sending you home with prescription for doxycycline. Please take as directed and in full. Please return to emergency room with worsening symptoms or concerns. EMERGENCY DEPARTMENT GENERAL DISCHARGE INSTRUCTIONS Thank you for coming to [facility] (ED) today and trusting us with you care. We trust that you had a positivie experience in our Emergency Department. If you wish to speak to the department management, you may call the director at [phone]. YOUR FOLLOW UP INSTRUCTIONS ARE FOLLOWS: 1. Do you have a private Doctor? If you do not have a private doctor, please ask for a resource list of physicians or clinics that may be able to assist you with follow up care. 2. The Emergency Physician has interpreted your x-rays. The X-Ray specialist will also review them. If there is a change in the findings, you will be notified in 48 hours when at all possible. 3. A lab test or culture has been done, your results will be reviewed and you will be notified if you need a change in treatment. ADDITIONAL INSTRUCTIONS AND INFORMATION: 1. Your care today has been supervised by a physician who is specially trained in emergency care. Many problems require more than one evaluation for a complete diagnosis and treatment. We recommend that you schedule your follow up appointment as recommended to ensure complete treatment of you illness or injury. If you are unable to obtain follow up care and continue to have a problem, or if your condition worsens, we recommend that you return to the ED. 2. We are not able to safely determine your condition over the phone nor are we able to give sound medical advice over the phone. For these safety reasons, if you call for medical advice we will ask you to come to the ED for further evaluation. 3. If you have any questions regarding these discharge instructions please call the ED at [phone]. SAFETY INFORMATION: In the interest of safety, wellness, and injury prevention; we encourage you to wear your sealbelt, if you smoke; quite smoking, and we encourage family to use a protective helmet for bicycling and other sporting events that present an increased risk for head injury. IF YOUR SYMPTOMS WORSEN OR NEW SYMPTOMS DEVELOP, OR YOU HAVE CONCERNS ABOUT YOUR CONDITION; OR IF YOUR CONDITION WORSENS WHILE YOU ARE WAITING FOR YOUR FOLLOW UP APPOINTMENT; EITHER CONTACT YOUR PRIMARY CARE DOCTOR, THE PHYSICIAN WHOSE NAME AND NUMBER YOU WERE GIVEN, OR RETURN TO THE ED IMMEDIATELY. Scripts Guaifenesin/Codeine Phosphate (GUAIFENESIN-CODEINE SYRUP) 5 Ml Liquid 10 ML PO TID for cough for 7 Days, #100 ML Prov: FIDEL DIAZ SOLUTIONS OPERATOR 03/12/21 Doxycycline Hyclate (DOXYCYCLINE HYCLATE) 100 Mg Tablet. 1 TAB PO BID for COPD EXACERBATION for 7 Days, #13 TAB Prov: FIDEL DIAZ APRN 03/12/21 FIDEL DIAZ APRN Mar 12, 2021 19:11 EUNICE MCGREGOR MD Mar 13, 2021 00:36
[2021-03-12 19:14] LABS: CALCIUM 8.5 mg/dL (8.5-10.1); CREATININE 0.8 mg/dL (0.6-1.0); GFR 77.6; POTASSIUM 3.9 mmol/L (3.5-5.1)
[2021-03-12 19:19] LABS: ALBUMIN 3.7 g/dL (3.4-5.0); TOTAL BILIRUBIN 0.3 mg/dL (0.2-1.0); TOTAL PROTEIN 7.5 g/dL (6.4-8.2)
[2021-03-12] MEDS ORDERED: IPRATRPIUM/ALBUTEROL 0.5/2.5MG 3 ML NEBU. NEB ONE (19:45)
[2021-03-12] MEDS ORDERED: DEXAMETHASONE SOD PHOS 10 MG/ML VIAL. IV ONE (19:45)
[2021-03-12] MEDS ORDERED: DOXY-96 PO (19:52)
[2021-03-12] MEDS ORDERED: DOXYCYCLINE HYCLATE 100 MG TABLET PO ONE (20:00)
--- NOTE | 2021-03-12 20:03 | EKG ---
[address] [address] Test Date: 2021-03-12 Test Time: 18:25:14 Pat Name: ISRAEL CHACON Department: Room: Gender: F Pediatric Radiologist: ROMEO : 1975 Requested By: FIDEL DIAZ Order Number: [id number] Reading MD: Measurements Intervals [place] Rate: 70 P: 9 CT: 152 QRS: 88 QRSD: 78 T: 66 QT: 404 QTc: 439 Interpretive Statements SINUS RHYTHM ATRIAL PREMATURE COMPLEX(ES) QRS(T) CONTOUR ABNORMALITY CONSISTENT WITH SEPTAL INFARCT AGE UNDETERMINED ABNORMAL ECG RI6.02 No previous ECG available for comparison
[2021-03-12] MEDS ORDERED: CODE5LIQ PO (20:56)
[2021-03-12] MEDS ORDERED: PROMETH/CODEINE 6.25/10MG 5 ML SYRUP. ONE (20:57)
[2021-03-12] MEDS ORDERED: guaiFENesin/CODEINE 100mg/10mg 5 ML LIQUID PO PRN (21:00)
[2021-03-12] MEDS ORDERED: PROMETH/CODEINE 6.25/10MG 5 ML SYRUP. PO PRN (21:00)
== END 2021-03-12 21:03 | disposition home or self-care (01) ==
LOC: ER 17:56
DX: J44.1 Chronic obstructive pulmonary disease with (acute) exacerbation (principal); K21.9 Gastro-esophageal reflux disease without esophagitis; F17.210 Nicotine dependence, cigarettes, uncomplicated
CPT/HCPCS: 36415; 71046; 80053; 84484; 85025; 93005; 94640; 96374; 99285; J1100

== ENCOUNTER 2021-04-09 09:22 | Inpatient (IN) | payer SELFPAY ==
[~2021-04-09] VITALS: Ht 165.1 cm; Wt 81.1 kg
[~2021-04-09 09:22] MED LIST changes: +CODE5LIQ PO; +DOXY-96 PO
[2021-04-09 09:58] LABS: BASO % 0 % (0-3); EOS % 0 % (0-3); HEMATOCRIT 43.9 % (36.0-47.0); HEMOGLOBIN 15.3 g/dL (12.0-15.5); LYMPH % 6 % (24-48); MEAN CORPUSCULAR HEMOGLOBIN 34 pg (25-35); MEAN CORPUSCULAR HGB CONC 35 g/dL (31-37); MEAN CORPUSCULAR VOLUME 99 fL (79-100); MONO # 1.6 x10^3/uL (0.0-1.1); MONO % 10 % (0-9); NEUT # 13.8 x10^3uL (1.8-7.7); NEUT % 84 % (31-73); PLATELET COUNT 246 x10^3/uL (140-400); RED BLOOD COUNT 4.45 x10^6/uL (3.50-5.40); WHITE BLOOD COUNT 16.4 x10^3/uL (4.0-11.0)
[2021-04-09 10:05] LABS: CALCIUM 8.3 mg/dL (8.5-10.1); CREATININE 0.8 mg/dL (0.6-1.0); GFR 77.2; POTASSIUM 3.3 mmol/L (3.5-5.1)
[2021-04-09 10:18] LABS: ALBUMIN 3.3 g/dL (3.4-5.0); ALBUMIN/GLOBULIN RATIO 0.9 (1.0-1.7); C REACTIVE PROTEIN 192.8 mg/L (0-3.3); TOTAL BILIRUBIN 0.6 mg/dL (0.2-1.0); TOTAL PROTEIN 7.1 g/dL (6.4-8.2)
--- NOTE | 2021-04-09 10:29 | RAD ---
XR CHEST 1V CLINICAL INDICATIONS: SHORTNESS OF BREATH COMPARISON: March 12, 2021. Findings: No acute lung infiltrate or pleural effusion or pulmonary edema or lung mass or pneumothora x is seen. The heart size, pulmonary vasculature, mediastinum and both devendra are unremarkable. Scolio sis is seen. IMPRESSION: No acute radiographic abnormality is seen. Electronically signed by: Len Fortune MD (04/09/2021 10:27 AM) [id number]
[2021-04-09] MEDS ORDERED: IV NORMAL SALINE 1,000ML 1,000 ML IV ONE (10:30)
[2021-04-09] MEDS ORDERED: ONDANSETRON PF 4 MG/2 ML VIAL. IVP ONE (10:30)
[2021-04-09] MEDS ORDERED: KETOROLAC 30 MG/ML VIAL. IVP ONE (10:30)
[2021-04-09] MEDS ORDERED: DEXAMETHASONE SOD PHOS 10 MG/ML VIAL. IVP ONE (10:30)
[2021-04-09 11:15] LABS: INFLUENZA A PATIENT NEGATIVE (NEGATIVE); INFLUENZA B PATIENT NEGATIVE (NEGATIVE)
[2021-04-09 11:22] LABS: % BANDS 6 % (0-9); % LYMPHS 9 % (24-48); % METAS 1 % (0-0); % MONOS 9 % (0-10); % SEGS 75 % (35-66); PLT ESTIMATE ADEQUATE (ADEQUATE)
--- NOTE | 2021-04-09 11:25 | PHYS DOC ---
Past History Past Medical History: COPD, GERD Additional Past Medical Histor: epigastritis, ulcer Past Surgical History: No Surgical History Smoking: Cigarettes, Less than 1pk/day Alcohol Use: Occasionally Drug Use: Cocaine Adult General Chief Complaint Chief Complaint: NAUSEA/VOMITING/DIARRHEA HPI HPI Patient is a 46-year-old female who presents to the emergency room with multiple complaints. Patient states that she has had cough, shortness of breath, nausea, vomiting, diarrhea, headache, neck pain. Patient states that the symptoms all started over the weekend and has been persistently getting worse. She has been taking gvks-bal-lpdgiyd medication without any relief. She states she was around Covid positive family last week. She has had her Covid vaccines. She states shortness of breath occurs when she is up moving around. She does not have any kind of productive cough. She states it is hard to keep anything down. Review of Systems Review of Systems Complete ROS is negative unless otherwise documented in HPI Current Medications Current Medications Current Medications Medications (Trade) Dose Ordered Sig/Zamzam Start Time Stop Time Status Last Admin Dose Admin Dexamethasone Sodium Phosphate (Decadron) 10 mg 1X ONCE 04/09/21 10:30 04/09/21 10:31 DC 04/09/21 10:28 10 MG Ketorolac Tromethamine (Toradol 30mg Vial) 30 mg 1X ONCE 04/09/21 10:30 04/09/21 10:31 DC 04/09/21 10:28 30 MG Ondansetron HCl (Zofran) 4 mg 1X ONCE 04/09/21 10:30 04/09/21 10:31 DC 04/09/21 10:28 4 MG Sodium Chloride 1,000 ml @ 1,000 mls/hr 1X ONCE 04/09/21 10:30 04/09/21 11:29 04/09/21 10:28 1,000 MLS/HR Allergies Allergies Allergies Coded Allergies Type Severity Reaction Last Updated Verified No Known Drug Allergies 04/09/21 No Physical Exam Physical Exam General: Awake, alert, ill-appearing. Well Nourished, well hydrated. Cooperative HEENT: Atraumatic, EOMI, PERRL, airway patent, moist oral mucosa Neck: Supple, trachea midline Respiratory: CTA bilaterally, normal effort, no wheezing/crackles CV: RRR, no murmur, cap refill <2 GI: Soft, nondistended, nontender, no masses MSK: No obvious deformities Skin: Warm, dry, intact Neuro: A&O x3, speech NL, sensory and motor grossly intact, no focal deficits Psych: Normal affect, normal mood, not suicidal or homicidal Current Patient Data Vital Signs Vital Signs Date Time Temp Pulse Resp B/P (MAP) Pulse Ox O2 Delivery O2 Flow Rate FiO2 04/09/21 09:30 99.6 89 24 113/70 96 Room Air Lab Results Laboratory Tests Test 04/09/21 09:37 White Blood Count 16.4 x10^3/uL (4.0-11.0) H Red Blood Count 4.45 x10^6/uL (3.50-5.40) Hemoglobin 15.3 g/dL (12.0-15.5) Hematocrit 43.9 % (36.0-47.0) Mean Corpuscular Volume 99 fL (79-100) Mean Corpuscular Hemoglobin 34 pg (25-35) Mean Corpuscular Hemoglobin Concent 35 g/dL (31-37) Red Cell Distribution Width 13.0 % (11.5-14.5) Platelet Count 246 x10^3/uL (140-400) Neutrophils (%) (Auto) 84 % (31-73) H Lymphocytes (%) (Auto) 6 % (24-48) L Monocytes (%) (Auto) 10 % (0-9) H Eosinophils (%) (Auto) 0 % (0-3) Basophils (%) (Auto) 0 % (0-3) Neutrophils # (Auto) 13.8 x10^3uL (1.8-7.7) H Lymphocytes # (Auto) 1.0 x10^3/uL (1.0-4.8) Monocytes # (Auto) 1.6 x10^3/uL (0.0-1.1) H Eosinophils # (Auto) 0.0 x10^3/uL (0.0-0.7) Basophils # (Auto) 0.0 x10^3/uL (0.0-0.2) Platelet Estimate Pending Sodium Level 135 mmol/L (136-145) L Potassium Level 3.3 mmol/L (3.5-5.1) L Chloride Level 96 mmol/L (98-107) L Carbon Dioxide Level 23 mmol/L (21-32) Anion Gap 16 (6-14) H Blood Urea Nitrogen 10 mg/dL (7-20) Creatinine 0.8 mg/dL (0.6-1.0) Estimated GFR (Cockcroft-Gault) 77.2 BUN/Creatinine Ratio 13 (6-20) Glucose Level 175 mg/dL (70-99) H Calcium Level 8.3 mg/dL (8.5-10.1) L Total Bilirubin 0.6 mg/dL (0.2-1.0) Aspartate Amino Transferase (AST) 14 U/L (15-37) L Alanine Aminotransferase (ALT) 20 U/L (14-59) Alkaline Phosphatase 86 U/L (46-116) Lactate Dehydrogenase 164 U/L (81-234) Creatine Kinase 58 U/L (26-192) Troponin I Quantitative < 0.017 ng/mL (0-0.055) C-Reactive Protein 192.8 mg/L (0-3.3) H DZ-Yjs-X-Type Natriuretic Peptide 875 pg/mL (0-124) H Total Protein 7.1 g/dL (6.4-8.2) Albumin 3.3 g/dL (3.4-5.0) L Albumin/Globulin Ratio 0.9 (1.0-1.7) L EKG EKG [] Radiology/Procedures Radiology/Procedures [] Heart Score C/O Chest Pain: N/A Risk Factors: Risk Factors: DM, Current or recent (<one month) smoker, HTN, HLP, family history of CAD, obesity. Risk Scores: Risk Factors: DM, Current or recent (<one month) smoker, HTN, HLP, family history of CAD, obesity. Course & Med Decision Making Course & Med Decision Making Pertinent Labs and Imaging studies reviewed. (See chart for details) Patient is a 46-year-old female who presents to the emergency room complaining of diffuse aching, cough, shortness of breath, nausea, vomiting. Patient symptoms are consistent with possible Covid versus influenza. Swabs were obtained for both. Patient was given Decadron, Zofran, Toradol, fluids initially for symptoms. Patient continues to have aching and nausea. She was given Reglan and Tylenol. Patient's pulse ox is around 90% on room air. Patient will be placed on [address] angio was added on after discussion with hospitalist along with a drug screen. Patient will be admitted to the hospital for hypoxia and possible COVID-19. Dragon Disclaimer Dragon Disclaimer This electronic medical record was generated, in whole or in part, using a voice recognition dictation system. Departure Departure: Impression: Primary Impression: Hypoxia Additional Impression: Person under investigation for COVID-19 Condition: STABLE Referrals: PCP,NO (PCP) Problem Qualifiers RAJESH TORRES MD Apr 09, 2021 11:25
[2021-04-09] MEDS ORDERED: diphenhydrAMINE HCL 25 MG CAPSULE PO ONE (11:30)
[2021-04-09] MEDS ORDERED: METOCLOPRAMIDE HCL 10 MG/2 ML VIAL. IVP ONE (11:30)
[2021-04-09] MEDS ORDERED: IOHEXOL 350 MG/ML 100 ML VIAL. IV ONE (12:15)
--- NOTE | 2021-04-09 12:46 | EKG ---
[address] [address] Test Date: 2021-04-09 Test Time: 11:40:23 Pat Name: ISRAEL CHACON Department: Room: Gender: F Oil Tester: CONNIE : 1975 Requested By: RAJESH TORRES Order Number: [id number] Reading MD: Measurements Intervals [place] Rate: 64 P: 26 HI: 146 QRS: 83 QRSD: 88 T: 7 QT: 444 QTc: 458 Interpretive Statements SINUS RHYTHM NORMAL ECG RI6.02 No previous ECG available for comparison
--- NOTE | 2021-04-09 13:04 | RAD ---
CTA CHEST History: Shortness of breath. Covid. Comparison: Chest radiograph 04/09/2021, 03/12/2021 Technique: CTA of the pulmonary arteries with intravenous contrast. 3-D multiplanar reformats are pro vided. Findings: Pulmonary arteries: No pulmonary embolism is identified. Aorta and great vessels: No aneurysm of the aortic arch or thoracic aorta is seen. Thyroid: No significant abnormalities. Mediastinum and devendra: No mediastinal masses or adenopathy is seen. Esophagus: The visualized esophagus is normal. Heart: The heart is normal in size. There is no pericardial effusion. Airways: No endobronchial masses. Lungs: Diffuse tiny centrilobular nodules. Multilobar platelike atelectatic change. Pleural space: There is no pneumothorax or pleural effusion. Upper abdomen: Limited evaluation of the upper abdomen is unremarkable. Osseous structures and soft tissues: Biphasic scoliotic curvature of the thoracic spine. No acute oss eous abnormalities. Impression: 1. No pulmonary embolism, aortic dissection or aortic aneurysm. 2. Diffuse pattern of tiny centrilobular groundglass opacities may represent bronchiolitis, infectio us or inflammatory etiology is possible. ------ Exposure: One or more of the following individualized dose reduction techniques were utilized for thi s examination: 1. Automated exposure control 2. Adjustment of the mA and/or kV according to patient size 3. Use of iterative reconstruction technique. Electronically signed by: Oren Madrid MD (04/09/2021 1:01 PM) [facility]
[2021-04-09] MEDS ORDERED: ACETAMINOPHEN 500 MG TABLET PO PRN (15:15)
--- NOTE | 2021-04-09 15:20 | HP ---
ATTENDING PHYSICIAN: Dr. Jacobsen. CHIEF COMPLAINT: Shortness of breath and myalgias. HISTORY OF PRESENT ILLNESS: The patient is a 46-year-old female smoker. She presented to the ED with a 3-day history of increasing shortness of breath, myalgias, nonproductive cough, low-grade fevers. In the ED, her initial chest x-ray was unremarkable, no acute infiltrates or decompensation identified. Her blood pressure was adequate, but she had diminished oxygen saturation on room air of 88%, supplemental oxygen was administered. The patient reportedly had been visiting her granddaughter and daughter out of town who reported a positive coronavirus after she left. The patient herself says she had her vaccines in December of this year. She had 2 shots. She continues to smoke a pack of cigarettes daily. Urine drug screen is pending. From previous reports some people who know her in this town say that there is a strong history of substance abuse in the past, whether she uses inhaled marijuana or methamphetamine remains to be seen. The urine drug screen is pending. Because of her symptoms of hypoxemia, she is admitted then with acute on chronic respiratory failure. She may have a viral syndrome; it could be coronavirus, it could be other viruses. Influenza A and B were reported as negative. ALLERGIES: The patient has no known drug allergies. MEDICATIONS: Her current medicines on admission include albuterol, Flexeril, doxycycline, Pepcid, hydrocodone with ibuprofen, hyoscyamine, metoclopramide, ondansetron, and prednisone. SOCIAL HISTORY: She is a smoker as noted. She denies significant alcohol use. FAMILY HISTORY: Noncontributory. REVIEW OF SYSTEMS: Significant for low-grade fevers, dyspnea with minimal exertion, dry nonproductive cough. The recent COVID exposure was from her daughter and granddaughter out of town, some nausea and she is very agitated. She appeared to be having some withdrawal symptoms. All other systems were reviewed and turned to be negative. PHYSICAL EXAMINATION: GENERAL: When I saw her this is a pleasant middle aged female who unfortunately appear older than her stated age. INITIAL VITAL SIGNS: Showed blood pressure 113/70, pulse is 80 and regular, temperature 99.6 degrees Fahrenheit, oxygen saturation 96% on room air. HEENT: Head is without trauma. Pupils are reactive. Oropharynx is clear. No stridor. Mucous membranes are dry. NECK: Supple. LUNGS: Fairly good breath sounds. I did not appreciate any rales or rhonchi. CARDIOVASCULAR: Showed distant heart tones. No gallops. ABDOMEN: Soft, nontender to palpation. Bowel sounds were hypoactive. EXTREMITIES: Show no cyanosis or edema. NEUROLOGIC: Focally intact. Speech is fluent. PERTINENT LABORATORY AND X-RAY STUDIES: Admission hemoglobin was 15.3 g/dL with a white count of 16,400. Sodium 135 mEq, potassium 3.3 mEq, nonfasting blood sugar 175 mg/dL. Cardiac enzymes negative for coronary ischemia. Chest x-ray initially was reported as clear. CT of the chest has been ordered. There is no evidence of pulmonary embolism or dissection. There is a diffuse pattern of tiny central lobar ground glass opacities representing bronchiolitis or inflammatory etiology is present. There are multilobar plate-like atelectatic changes identified. The heart size is otherwise normal. ASSESSMENT: 1. A 46-year-old female with acute on chronic respiratory failure. 2. History of polysubstance abuse. 3. Atypical pneumonia on CT scan. 4. Rule out coronavirus and/or other infectious etiology, she did have her coronavirus vaccines 3 months ago. 5. Hypoxemia requiring supplemental oxygen. PLAN: 1. Admit to the inpatient unit. 2. Telemetry monitoring. 3. We shall isolate the patient pending her results of a coronavirus swab. 4. Empiric Solu-Medrol 60 mg every 6 hours. 5. Scheduled Proventil inhaler in the form of Combivent 4 times a day. 6. Await results of the coronavirus swab that will be available in the next 24 hours. JOSE J/OBED/ZUNILDA DR: Kirby TID: [id number]
[2021-04-09 15:27] VITALS: BP 101/63
[2021-04-09 15:43] LABS: BARBITURATES NEG (NEG); BENZODIAZEPINES NEG (NEG); CANNABINOIDS POS (NEG); COCAINE POS (NEG); METHADONE NEG (NEG); OPIATES NEG (NEG); PHENCYCLIDINE NEG (NEG)
--- NOTE | 2021-04-09 15:43 | NUR ---
PATIENT IS A 46 Y O FEMALE ARRIVED VIA EMS. PATIENT IS A/O X4, C/O PAIN, NAUSEA. PATIENT DENIED ANY COUGH AT THIS MOMENT, PATIENT STATED HER SENSES OF TASTE AND SMELL INTACT, PATIENT REQUESTED SOME ICE CHIPS AND JELLO. PATIENT IS CURRENTLY IN A BED AWAKE, PATIENT IS ORIENTED TO THE ROOM AND HOSPITAL POLICIES, BELONGINGS OBTAINED. WILL CTM.
[2021-04-09 15:47] LABS: AMPHETAMINE/METHAMPHETAMINE NEG (NEG)
[2021-04-09 15:53] LABS: BILIRUBIN,URINE NEG (NEG); CLARITY,URINE CLEAR; COLOR,URINE YELLOW; GLUCOSE,URINE NEG (NEG); NITRITE,URINE NEG (NEG); UROBILINOGEN,URINE 0.2 mg/dL (0.2 mg/dL)
[2021-04-09 15:54] LABS: BACTERIA,URINE MOD /HPF (0-FEW); SQUAMOUS EPITHELIAL CELL,UR FEW /LPF
[2021-04-09] MEDS: IPRATROPIUM/ALBUTEROL 20/100mcg/INH INHALER. INH SCH ×2 (17:03→20:00)
[2021-04-09 19:45] VITALS: BP 102/73
[2021-04-09] MEDS: ONDANSETRON PF 4 MG/2 ML VIAL. IVP PRN (20:39)
[2021-04-09] MEDS: methylPREDNISolone SOD SUCC PF 125 MG/2 ML VIAL. IV SCH (22:06)
[2021-04-10] MEDS: methylPREDNISolone SOD SUCC PF 125 MG/2 ML VIAL. IV SCH (07:01)
[2021-04-10] MEDS: ONDANSETRON PF 4 MG/2 ML VIAL. IVP PRN (07:01)
[2021-04-10 07:17] VITALS: BP 101/72
--- NOTE | 2021-04-10 09:46 | NUR ---
PATIENT IS DISCHARGED HOME, DISCHARGE INSTRUCTION AND PRESCRIBED MEDS REVIEWED,PATIENT VERBALIZED UNDERSTANDING. PATIENT LEFT UNIT VIA AMBULATION ACCOMP BY THIS RN.PATIENT TAKEN HOME BY FRIEND VIA PERSONAL VEHICLE.
--- NOTE | 2021-04-10 13:48 | DS ---
DATE OF DISCHARGE: 04/10/2021 ATTENDING PHYSICIAN: Dr. Jacobsen. FINAL DISCHARGE DIAGNOSES: 1. Acute on chronic respiratory failure. 2. Exacerbation of chronic obstructive pulmonary disease. 3. Coronavirus infection ruled out. 4. History of polysubstance abuse. 5. Hypoxemia, improved. HISTORY OF PRESENT ILLNESS: The patient is a 46-year-old female with known substance abuse. She does smoke cigarettes and uses marijuana and cigarettes. She had an abnormal CT of the chest with a very small patchy infiltrate. She has had her COVID vaccine. She was admitted for a person under investigation. PHYSICAL EXAMINATION: Please see the dictated note. PERTINENT LABORATORY AND X-RAY STUDIES: Her hemoglobin was 15.1 g/dL, white count 16,400. Electrolytes unremarkable. Cardiac enzymes negative. Urinalysis showed moderate bacteria. Cultures were pending. Serology was negative for influenza A and B and for the SARS-CoV-2 by PCR. COURSE IN THE HOSPITAL: She was admitted. She was given steroids, nebulizer treatments and home meds. Diet was advanced. She did better. By the second hospital day, her lungs were improved. She was moving air without any wheezing or tightness and her oxygen saturation was 91% on room air. Her lungs were soundly clear. At this time, I recommended prednisone 60 mg p.o. daily for 5 more days and stop. In addition, because of symptomatic dysuria, I recommended cephalexin 250 p.o. t.i.d. for five more days and then stop. Other home meds include the following: She should continue her albuterol inhaler and hydrocodone p.r.n. pain. She was discharged then from our hospital in stable condition with explicit drug and followup care. Strong encouragement to avoid further tobacco and marijuana use, whether or not she will follow advice remains to be seen. She was discharged in stable condition. JOSE J/TONO DR: Kirby TID: [id number]
== END 2021-04-10 09:45 | disposition home or self-care (01) | DRG 193 ==
LOC: ER 09:22 → 1 SOUTH 12:28
PROVIDERS: ADMIT Hospitalist; ATTEND Hospitalist
DX: J18.9 Pneumonia, unspecified organism (principal); J96.21 Acute and chronic respiratory failure with hypoxia; J44.0 Chronic obstructive pulmonary disease with (acute) lower respiratory infection; J44.1 Chronic obstructive pulmonary disease with (acute) exacerbation; F17.210 Nicotine dependence, cigarettes, uncomplicated; Z20.822 Contact with and (suspected) exposure to COVID-19; K21.9 Gastro-esophageal reflux disease without esophagitis
CPT/HCPCS: 36415; 71045; 71275; 80053; 80307; 81001; 82550; 83615; 83880; 84484; 85007; 85025; 86140; 87086; 87804; 93005; 96361; 96374; 96375; J1100; J1885; J2405; J2765; J2930; Q0163; Q9967; U0003; 99285-25; J7030

== ENCOUNTER 2021-09-01 09:01 | Inpatient (IN) | payer SELFPAY ==
[~2021-09-01] VITALS: Ht 165.1 cm; Wt 78.2 kg
[~2021-09-01 09:01] MED LIST changes: -CYCL-331 PO; +CYCL10TA19 PO
--- NOTE | 2021-09-01 09:27 | PHYS DOC ---
Past History Past Medical History: COPD, GERD Additional Past Medical Histor: epigastritis, ulcer Past Surgical History: Appendectomy, Hysterectomy, Oophorectomy Smoking: Cigarettes, Less than 1pk/day Alcohol Use: None Drug Use: Cocaine Adult General Chief Complaint Chief Complaint: COUGH HPI HPI Patient is a 46-year-old female presenting via POV for URI symptoms. Patient reports having several days of rhinorrhea, postnasal drip, new onset productive cough with clear/yellow sputum, fatigue with subjective fever and chills. Nothing known makes better or worse. Patient reports she is in pain all over. Timing of symptoms has been constant since onset. She has history of COPD but denies using her home albuterol inhaler for this. She denies any other known medical issues. Admits ongoing alcohol dependence in addition to tobacco abuse, marijuana and recent crack use. Review of Systems Review of Systems Fourteen body systems of review of systems have been reviewed. See HPI for pertinent positives and negative responses, other cummins all other systems are negative, non-pertinent or non-contributory Allergies Allergies Allergies Coded Allergies Type Severity Reaction Last Updated Verified No Known Drug Allergies 09/01/21 No Physical Exam Physical Exam Constitutional: Well developed, well nourished, no acute distress, non-toxic appearance. HENT: Normocephalic, atraumatic, bilateral external ears normal, oropharynx kera [address], no oral exudates, nose normal. Eyes: PERRLA, EOMI, conjunctiva normal, no discharge. Neck: Normal range of motion, no tenderness, supple, no stridor. Cardiovascular: Heart rate regular, sinus rhythm, no murmurs rubs or gallops Lungs & Thorax: Bilateral breath sounds clear to auscultation Abdomen: Bowel sounds normal, soft, no tenderness, no masses, no pulsatile masses. Nonsurgical abdomen, no peritoneal signs Skin: Warm, dry, no erythema, no rash. Back: No tenderness, no CVA tenderness. Extremities: No tenderness, no cyanosis, no clubbing, ROM intact, no edema. Neurologic: Alert and oriented X 3, grossly normal motor & sensory function, no focal deficits noted. Psychologic: Affect normal, judgement normal, mood normal. Current Patient Data Vital Signs Vital Signs Date Time Temp Pulse Resp B/P (MAP) Pulse Ox O2 Delivery O2 Flow Rate FiO2 09/01/21 09:20 98.3 80 24 119/66 (83) 96 Room Air Lab Results Laboratory Tests Test 09/01/21 09:50 09/01/21 09:55 White Blood Count 4.6 x10^3/uL Red Blood Count 4.61 x10^6/uL Hemoglobin 15.8 g/dL Hematocrit 46.3 % Mean Corpuscular Volume 100 fL Mean Corpuscular Hemoglobin 34 pg Mean Corpuscular Hemoglobin Concent 34 g/dL Red Cell Distribution Width 13.0 % Platelet Count 296 x10^3/uL Neutrophils (%) (Auto) 50 % Lymphocytes (%) (Auto) 34 % Monocytes (%) (Auto) 11 % Eosinophils (%) (Auto) 4 % Basophils (%) (Auto) 1 % Neutrophils # (Auto) 2.3 x10^3uL Lymphocytes # (Auto) 1.6 x10^3/uL Monocytes # (Auto) 0.5 x10^3/uL Eosinophils # (Auto) 0.2 x10^3/uL Basophils # (Auto) 0.0 x10^3/uL D-Dimer (Funmi) 0.54 mg/L Sodium Level 143 mmol/L Potassium Level 3.9 mmol/L Chloride Level 103 mmol/L Carbon Dioxide Level 24 mmol/L Anion Gap 16 Blood Urea Nitrogen 7 mg/dL Creatinine 0.7 mg/dL Estimated GFR (Cockcroft-Gault) 90.1 BUN/Creatinine Ratio 10 Glucose Level 94 mg/dL Calcium Level 8.6 mg/dL Total Bilirubin 0.2 mg/dL Aspartate Amino Transf (AST/SGOT) 18 U/L Alanine Aminotransferase (ALT/SGPT) 23 U/L Alkaline Phosphatase 79 U/L Troponin I High Sensitivity 6 ng/L TI-Nne-D-Type Natriuretic Peptide 29 pg/mL Total Protein 7.7 g/dL Albumin 4.0 g/dL Albumin/Globulin Ratio 1.1 Influenza Type A (Rapid) Negative Influenza Type B (Rapid) Negative SARS-CoV-2 Antigen (Rapid) Negative Current Medications Medications (Trade) Dose Ordered Sig/Zamzam Route PRN Reason Start Time Stop Time Status Last Admin Dose Admin Sodium Chloride 1,000 ml @ 1,000 mls/hr 1X ONCE IV 09/01/21 09:30 09/01/21 10:29 DC 09/01/21 09:59 Aspirin (Wei Aspirin) 325 mg 1X ONCE PO 09/01/21 09:30 124/21 09:35 DC 09/01/21 09:57 Methylprednisolone Sodium Succinate (SOLU-Medrol 125MG VIAL) 125 mg 1X ONCE IV 09/01/21 09:30 09/01/21 09:35 DC 09/01/21 10:01 Albuterol/ Ipratropium (Duoneb) 3 ml 1X ONCE NEB 09/01/21 10:15 09/01/21 10:19 DC 09/01/21 10:25 EKG EKG EKG ordered and interpreted by myself at 1014 hrs. as sinus rhythm at 81 bpm, unremarkable intervals, no axis deviation, no acute ischemic findings, no STEMI Radiology/Procedures Radiology/Procedures XR CHEST 1V History: Reason: cough / Spl. Instructions: / History: Comparison: April 09, 2021 Findings: Mild ill-defined bibasilar opacities. No pleural effusion. No pneumothorax. Normal heart size. Impression: 1. Mild ill-defined bibasilar opacities, may represent atelectasis or developin g infiltrates. Persistent clinical concern, recommend follow-up. Electronically signed by: Jamie Harden DO (09/01/2021 10:06 AM) [facility] Heart Score C/O Chest Pain: No HEART Score for Chest Pain: HEART Score for Chest Pain Response (Comments) Value History Slighlty/Non-Suspicious 0 ECG Normal 0 Age >45 - < 65 1 Risk Factors 1 or 2 Risk Factors 1 Troponin < Normal Limit 0 Total 2 Risk Factors: Risk Factors: DM, Current or recent (<one month) smoker, HTN, HLP, family history of CAD, obesity. Risk Scores: Risk Factors: DM, Current or recent (<one month) smoker, HTN, HLP, family history of CAD, obesity. Course & Med Decision Making Course & Med Decision Making Airway patent, breathing labored at times, IV access and vitals obtained HPI physical exam and comprehensive ER work-up grossly nonconcerning for any emergent or surgical issues With that said, patient had several episodes that were observed of hypoxia during coughing spells and with minimal physical exertion. Symptoms that are most consistent with acute exacerbation of COPD in a patient noncompliant with home medications/inhalers and ongoing tobacco abuse Patient symptoms did not improve with ER breathing treatments, steroids and other provided supportive care measures. Patient requiring extremely low amount of supplemental oxygen to keep O2 saturations greater than 90% With all of this said, patient is not fit for departure home. I have fear of respiratory collapse if discharged home due to patient's poor medical literacy and recommended admission. Dr. Linares, hospitalist at [facility] accepted patient under his care I updated patient on all discussions, all lab findings and need for admission and she remained amenable. She confirms she is full CODE STATUS at time of admission Dragon Disclaimer Dragon Disclaimer This electronic medical record was generated, in whole or in part, using a voice recognition dictation system. Departure Departure: Impression: Primary Impression: COPD with acute exacerbation Additional Impression: Hypoxia Disposition: ADMITTED INPATIENT ([facility]) Admitting Physician: Ulises Linares Condition: STABLE Referrals: PCP,NO (PCP) Problem Qualifiers SHADI LUCERO DO Sep 01, 2021 09:27
[2021-09-01] MEDS ORDERED: methylPREDNISolone SOD SUCC PF 125 MG/2 ML VIAL. IV ONE (09:30)
[2021-09-01] MEDS ORDERED: ASPIRIN 325 MG TABLET PO ONE (09:30)
[2021-09-01] MEDS ORDERED: IV NORMAL SALINE 1,000ML 1,000 ML IV ONE (09:30)
--- NOTE | 2021-09-01 10:08 | RAD ---
XR CHEST 1V History: Reason: cough / Spl. Instructions: / History: Comparison: April 09, 2021 Findings: Mild ill-defined bibasilar opacities. No pleural effusion. No pneumothorax. Normal heart size. Impression: 1. Mild ill-defined bibasilar opacities, may represent atelectasis or developing infiltrates. Persis tent clinical concern, recommend follow-up. Electronically signed by: Jamie Harden DO (09/01/2021 10:06 AM) [facility]
[2021-09-01] MEDS ORDERED: IPRATRPIUM/ALBUTEROL 0.5/2.5MG 3 ML NEBU. NEB ONE (10:15)
[2021-09-01 10:42] LABS: BASO % 1 % (0-3); EOS # 0.2 x10^3/uL (0.0-0.7); EOS % 4 % (0-3); HEMATOCRIT 46.3 % (36.0-47.0); HEMOGLOBIN 15.8 g/dL (12.0-15.5); LYMPH # 1.6 x10^3/uL (1.0-4.8); LYMPH % 34 % (24-48); MEAN CORPUSCULAR HEMOGLOBIN 34 pg (25-35); MEAN CORPUSCULAR HGB CONC 34 g/dL (31-37); MEAN CORPUSCULAR VOLUME 100 fL (79-100); MONO # 0.5 x10^3/uL (0.0-1.1); MONO % 11 % (0-9); NEUT # 2.3 x10^3uL (1.8-7.7); NEUT % 50 % (31-73); PLATELET COUNT 296 x10^3/uL (140-400); RED BLOOD COUNT 4.61 x10^6/uL (3.50-5.40); WHITE BLOOD COUNT 4.6 x10^3/uL (4.0-11.0)
[2021-09-01 10:57] LABS: INFLUENZA A PATIENT NEGATIVE (NEGATIVE); INFLUENZA B PATIENT NEGATIVE (NEGATIVE)
[2021-09-01 11:00] LABS: CALCIUM 8.6 mg/dL (8.5-10.1); CREATININE 0.7 mg/dL (0.6-1.0); GFR 90.1; POTASSIUM 3.9 mmol/L (3.5-5.1)
[2021-09-01 11:11] LABS: ALBUMIN/GLOBULIN RATIO 1.1 (1.0-1.7); TOTAL BILIRUBIN 0.2 mg/dL (0.2-1.0); TOTAL PROTEIN 7.7 g/dL (6.4-8.2)
[2021-09-01] MEDS ORDERED: NITROGLYCERIN SUBLINGUAL 0.4 MG BOTTLE OF 25. SL PRN (11:30)
[2021-09-01] MEDS ORDERED: ONDANSETRON PF 4 MG/2 ML VIAL. IVP PRN (11:30)
[2021-09-01] MEDS ORDERED: ACETAMINOPHEN 325 MG TABLET PO PRN (11:30)
[2021-09-01] MEDS ORDERED: AZITHROMYCIN 500 MG in IV NORMAL SALINE 250ML 250 ML IV ONE (11:30)
[2021-09-01 11:33] LABS: BARBITURATES NEG (NEG); BENZODIAZEPINES NEG (NEG); CANNABINOIDS NEG (NEG); COCAINE POS (NEG); METHADONE NEG (NEG); OPIATES NEG (NEG); PHENCYCLIDINE NEG (NEG)
[2021-09-01] MEDS ORDERED: IV NORMAL SALINE 250ML 250 ML ONE (11:33)
[2021-09-01] MEDS ORDERED: AZITHROMYCIN 500 MG VIAL. IV ONE (11:33)
[2021-09-01 11:34] LABS: AMPHETAMINE/METHAMPHETAMINE NEG (NEG)
[2021-09-01 11:40] LABS: BACTERIA,URINE 0 /HPF (0-FEW); BILIRUBIN,URINE NEG (NEG); CLARITY,URINE CLEAR; COLOR,URINE YELLOW; GLUCOSE,URINE NEG (NEG); HYALINE CASTS, URINE OCC /HPF; NITRITE,URINE NEG (NEG); RBC,URINE OCC /HPF (0-2); SQUAMOUS EPITHELIAL CELL,UR FEW /LPF; UROBILINOGEN,URINE 0.2 mg/dL (0.2 mg/dL); WBC,URINE OCC /HPF (0-4)
[2021-09-01] MEDS ORDERED: IOHEXOL 350 MG/ML 100 ML VIAL. IV ONE (12:00)
--- NOTE | 2021-09-01 12:25 | EKG ---
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
--- NOTE | 2021-09-01 12:38 | RAD ---
CTA CHEST History: Shortness of breath. Cough. Technique: CT of the chest was performed with intravenous contrast. PE protocol. Maximum intensity pr ojection coronal and sagittal reconstructions were performed. Exposure: One or more of the following individualized dose reduction techniques were utilized for thi s examination: 1. Automated exposure control 2. Adjustment of the mA and/or kV according to patient size 3. Use of iterative reconstruction technique. Comparison: April 09, 2021 Findings: Chest: No pulmonary embolism. Numerous mildly enlarged mediastinal and hilar lymph nodes. Largest rig ht hilar lymph node measures 1.2 x 1.1 cm. Largest precarinal lymph node measures 2.0 x 1.0 cm. No ao rtic aneurysm or dissection. No consolidation or pleural effusion. Bilateral lower lobe, lingular and right middle lobe linear ate lectasis. Elevation the right hemidiaphragm. 4 mm right middle lobe pulmonary nodule (series 4 image 90), unchanged. 3 mm right upper lobe pulmona ry nodule (image 53), unchanged. Upper abdomen: Unchanged hypodensity within the spleen. Bones: Right upper curvature of the thoracic spine with multilevel spondylosis. Impression: 1. No pulmonary embolism. 2. Mild mediastinal and hilar lymphadenopathy, potentially reactive. Recommend follow-up to ensure r esolution. 3. Mild scattered bilateral linear atelectasis. 4. Unchanged small pulmonary nodules. Recommend one-year follow-up chest CT without contrast if high risk. Electronically signed by: Jamie Harden DO (09/01/2021 12:36 PM) [facility]
[2021-09-01] MEDS ORDERED: THIAMINE 100 MG TABLET. PO ONE (13:00)
[2021-09-01] MEDS ORDERED: FOLIC ACID 1 MG TABLET PO ONE (13:00)
[2021-09-01] MEDS ORDERED: MULTIVITAMIN with MINERAL TABLET. PO ONE (13:00)
[2021-09-01 13:55] VITALS: BP 102/65
[2021-09-01] MEDS ORDERED: diphenhydrAMINE 50 MG/ML VIAL IVP PRN (15:00)
[2021-09-01] MEDS ORDERED: chlordiazePOXIDE HCL 25 MG CAPSULE PO PRN ×2 (15:00)
[2021-09-01] MEDS ORDERED: LORazepam 1 MG TABLET PO PRN (15:00)
[2021-09-01] MEDS ORDERED: HALOPERIDOL LACT 5 MG/ML VIAL. IM PRN (15:00)
[2021-09-01] MEDS ORDERED: IPRATRPIUM/ALBUTEROL 0.5/2.5MG 3 ML NEBU. NEB SCH (16:00)
--- NOTE | 2021-09-01 16:09 | HP ---
DATE OF SERVICE: 09/01/2021 ADMIT DATE: 09/01/2021 HISTORY OF PRESENT ILLNESS: The patient is a 46-year-old female patient who presented to the Emergency Room with a complaint of cough, rhinorrhea, postnasal drip, new onset productive cough with clear to yellowish sputum, fatigue, subjective fever and chills. She also has some shortness of breath and bad headache. She reports that she has aches and pains all over, time of the symptom has been constant since onset. She has a history of COPD, but denies using any home albuterol inhaler or oxygen. Denied any known other medical problems. She was extensively investigated in the Emergency Room, has had lab work as well as imaging studies. Her CBC showed her white cell counts were normal. Her D-dimer was 0.54. Her chemistry was mostly unremarkable. Her lactic acid was only 2. Urinalysis essentially unremarkable and her serum test was negative. Her toxic screen was positive for cocaine and alcohol and her coronavirus rapid testing was negative as well as influenza A and B. Her chest x-ray showed mild ill-defined bibasilar opacities, may represent atelectasis or developing infiltrate, persistent clinical concern, recommend followup. CT angio of the chest showed no pulmonary embolism, mild mediastinal hilar lymphadenopathy, potentially reactive, recommend followup to ensure resolution. She also has mild scattered bilateral linear atelectasis and unchanged small pulmonary nodule. The patient was admitted with acute hypoxic respiratory failure, COPD exacerbation and she also has alcohol dependence, nicotine dependence as well as cocaine and marijuana abuse. PAST MEDICAL HISTORY: Significant for chronic obstructive pulmonary disease, gastric ulcer and hyperlipidemia. PAST SURGICAL HISTORY: Significant for total abdominal hysterectomy, appendectomy. ALLERGIES: She has no known drug allergies. MEDICATIONS: She is on albuterol sulfate 2 puffs every 4 hours, hydrocodone/ibuprofen 7.5/200 one tablet every 6 hours and ondansetron 4 mg every 6-8 hours. She is also supposed to be on omeprazole 20 mg once a day and vitamin D3 once a week. FAMILY HISTORY: She has 1 sister, older; and one brother, younger; both alive and healthy. Her father in his 60s due to myocardial infarction. Mother is still alive, has COPD, congestive heart failure. SOCIAL HISTORY: She is single, has one son that was diseased. She smokes 3 packs a day. When she drinks, she drinks three 24 ounces beer together with vodka. She smokes marijuana as well as alcohol. 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 PHYSICAL EXAMINATION: GENERAL: On arrival to the Emergency Room, the patient was slightly tachypneic, hypoxic, but there was no pallor, jaundice, cyanosis, no lymphadenopathy, no thyromegaly, no jugular venous distention. No lower limb edema. VITAL SIGNS: Her heart rate was 80, blood pressure was 119/66, temperature was 98.3, respiratory rate 24, and oxygen saturation was 90%, that improved to 94% on 1 L of oxygen by nasal cannula. HEAD, EYES, EARS, NOSE, AND THROAT: Normocephalic, atraumatic. NECK: Supple. HEART: Showed normal first and second heart sounds, no gallop or murmur. CHEST: Shows central trachea, equal bilateral chest expansion, air entry, vesicular breath sounds with diffuse bilateral rhonchi. ABDOMEN: Distended, soft, nontender. NEUROLOGIC: She was grossly intact. LABORATORY DATA: On arrival showed a white cell count of 4600, hemoglobin 16, hematocrit 46, MCV 100 and platelet count 296,000 with normal manual differential. Her chemistry showed a serum sodium 143, potassium 3.9, chloride 103, bicarbonate 24, anion gap of 16, BUN 7, creatinine 0.7. Estimated GFR was 90 mL per minute. Her glucose was 94. Lactic acid was 2. Serum calcium was 8.6. Total bilirubin, AST, ALT, alkaline phosphatase were normal. Total protein 7.7, albumin was 4. Her D-dimer was 0.54. Urinalysis was essentially unremarkable and test was negative. Her tox screen was positive for alcohol and cocaine, negative for opiates, methadone, barbiturates, phencyclidine, amphetamine, methamphetamine, benzodiazepine, and cannabinoid. ASSESSMENT AND PLAN: 1. The patient was admitted with acute hypoxic respiratory failure. 2. Chronic obstructive pulmonary disease exacerbation. 3. Questionable atypical community-acquired pneumonia. She was treated with IV steroids and azithromycin together with albuterol and Atrovent. We will continue with all these treatments, started also on alcohol withdrawal protocol and she is a heavy drinker and she will probably start withdrawing. DONNIE/TAMIKA DR: Samina TID: [id number]
[2021-09-01] MEDS: IPRATROPIUM/ALBUTEROL 20/100mcg/INH INHALER. INH SCH ×2 (16:53→20:00)
[2021-09-01 20:10] VITALS: BP 108/73
[2021-09-01] MEDS: methylPREDNISolone SOD SUCC PF 40 MG/ML VIAL. IV SCH (22:38)
[2021-09-02 00:36] VITALS: BP 111/76
[2021-09-02 05:00] VITALS: BP 112/72
--- NOTE | 2021-09-02 06:02 | NUR ---
Pt slept off and on last night. She states, "I haven't eaten since ." She asked for food every hour or two. Pt started the shift on clear liquids. Slowly progressed pt to full liquids and solids; she tolerated it well. She denies pain. Will continue to monitor.
[2021-09-02] MEDS: methylPREDNISolone SOD SUCC PF 40 MG/ML VIAL. IV SCH ×3 (06:05→22:00)
[2021-09-02 08:03] LABS: BASO % 0 % (0-3); EOS % 0 % (0-3); HEMATOCRIT 40.9 % (36.0-47.0); HEMOGLOBIN 13.9 g/dL (12.0-15.5); LYMPH % 15 % (24-48); MEAN CORPUSCULAR HEMOGLOBIN 35 pg (25-35); MEAN CORPUSCULAR HGB CONC 34 g/dL (31-37); MEAN CORPUSCULAR VOLUME 102 fL (79-100); MONO # 0.2 x10^3/uL (0.0-1.1); MONO % 3 % (0-9); NEUT # 5.8 x10^3uL (1.8-7.7); NEUT % 82 % (31-73); PLATELET COUNT 261 x10^3/uL (140-400); RED BLOOD COUNT 4.02 x10^6/uL (3.50-5.40); RED CELL DISTRIBUTION WIDTH 13.3 % (11.5-14.5)
[2021-09-02] MEDS: IPRATROPIUM/ALBUTEROL 20/100mcg/INH INHALER. INH SCH ×4 (08:07→20:00)
[2021-09-02] MEDS: AZITHROMYCIN 250 MG TABLET. PO SCH (08:09)
[2021-09-02] MEDS: THIAMINE 100 MG TABLET. PO SCH (08:09)
[2021-09-02] MEDS: FOLIC ACID 1 MG TABLET PO SCH (08:09)
[2021-09-02] MEDS: LACTOBACILLUS RHAMNOSUS GG 1 CAPSULE. PO SCH ×2 (08:09→20:17)
[2021-09-02] MEDS: MULTIVITAMIN with MINERAL TABLET. PO SCH (08:10)
[2021-09-02 08:33] LABS: ALBUMIN 3.2 g/dL (3.4-5.0); ALBUMIN/GLOBULIN RATIO 0.9 (1.0-1.7); CALCIUM 8.2 mg/dL (8.5-10.1); CREATININE 0.6 mg/dL (0.6-1.0); GFR 107.6; POTASSIUM 3.8 mmol/L (3.5-5.1); TOTAL BILIRUBIN 0.2 mg/dL (0.2-1.0); TOTAL PROTEIN 6.8 g/dL (6.4-8.2)
[2021-09-02 11:05] VITALS: BP 110/72
[2021-09-02 15:52] VITALS: BP 96/62
--- NOTE | 2021-09-02 17:40 | PN ---
DATE: 09/02/2021 SUBJECTIVE: The patient is resting, slightly propped up in bed, continued to have recurrent bouts of dry hacking cough; however, she denied any chest pain. Did complain of some shortness of breath. Denied any chills, rigors or fever. PHYSICAL EXAMINATION: GENERAL: When I examined her, she was somewhat pale, not jaundiced or cyanosed. No lymphadenopathy, no thyromegaly, no jugular venous distention. No lower limb edema. VITAL SIGNS: Her heart rate was 63, blood pressure was 112/72, temperature was 97.6, respiratory rate was 18 and oxygen saturation was 95% on 1 L of oxygen. HEAD, EYES, EARS, NOSE, AND THROAT: Normocephalic, atraumatic. NECK: Supple. HEART: Showed normal first and second heart sounds. No gallop, rub or murmur. CHEST: Showed central trachea, equally reduced expansion, reduced air entry, vesicular breath sounds. I could not appreciate any crepitation or rhonchi. ABDOMEN: Distended, soft, nontender. NEUROLOGIC: She was grossly intact. LABORATORY DATA: Her lab work this morning showed a white cell count 7000, hemoglobin 14, hematocrit 40, MCV 102 and platelet count of 261,000. Serum sodium 138, potassium 3.8, chloride 103, bicarbonate 25, anion gap of 10, BUN 15, creatinine 0.6. Estimated GFR was 107 mL per minute. Her glucose 182, calcium was 8.2. Lactic acid was 2. Total bilirubin, AST, ALT, alkaline phosphatase were normal. Total protein 6.8, albumin 3.2. ASSESSMENT: 1. Acute hypoxic respiratory failure. 2. Chronic obstructive pulmonary disease exacerbation. 3. Questionable atypical pneumonia. PLAN: To continue with IV steroids and azithromycin together with albuterol and Atrovent. Continue with alcohol withdrawal protocol. I will add Singulair and also perhaps Tylenol No. 3 as a cough suppressant because of recurrent bouts of severe dry hacking cough. BETH/JASMINE DR: Samina TID: [id number]
[2021-09-02 19:00] VITALS: BP 117/71
[2021-09-02] MEDS: MONTELUKAST 10 MG TABLET. PO SCH (20:17)
[2021-09-02] MEDS: ACETAMINOPHEN/CODEINE 300/30MG TABLET PO SCH (20:19)
[2021-09-02 23:00] VITALS: BP 106/63
[2021-09-03] MEDS: ACETAMINOPHEN/CODEINE 300/30MG TABLET PO PRN
[2021-09-03 05:00] VITALS: BP 109/67
[2021-09-03] MEDS: methylPREDNISolone SOD SUCC PF 40 MG/ML VIAL. IV SCH ×3 (05:30→21:06)
[2021-09-03] MEDS: MULTIVITAMIN with MINERAL TABLET. PO SCH (07:46)
[2021-09-03] MEDS: LACTOBACILLUS RHAMNOSUS GG 1 CAPSULE. PO SCH ×2 (07:46→21:06)
[2021-09-03] MEDS: AZITHROMYCIN 250 MG TABLET. PO SCH (07:47)
[2021-09-03] MEDS: THIAMINE 100 MG TABLET. PO SCH (07:47)
[2021-09-03] MEDS: FOLIC ACID 1 MG TABLET PO SCH (07:47)
[2021-09-03] MEDS: IPRATROPIUM/ALBUTEROL 20/100mcg/INH INHALER. INH SCH ×4 (08:00→21:06)
[2021-09-03 11:18] VITALS: BP 92/59
[2021-09-03 15:50] VITALS: BP 114/72
[2021-09-03 19:00] VITALS: BP 141/72
[2021-09-03] MEDS: MONTELUKAST 10 MG TABLET. PO SCH (21:06)
[2021-09-03] MEDS: ACETAMINOPHEN/CODEINE 300/30MG TABLET PO SCH (21:08)
--- NOTE | 2021-09-03 21:22 | PN ---
DATE: 09/03/2021 SUBJECTIVE: The patient is resting, slightly propped up in bed, continued to have recurrent bouts of dry hacking cough. However, her oxygen saturation was 97% on room air. PHYSICAL EXAMINATION: GENERAL: When I examined her, there was no pallor, jaundice, cyanosis, no lymphadenopathy, no thyromegaly, no jugular venous distention. No limb edema. VITAL SIGNS: Her heart rate was 66, blood pressure was 92/59, temperature 97.6, respiratory rate was 18 and oxygen saturation was 97% on room air. HEAD, EYES, EARS, NOSE, AND THROAT: Normocephalic, atraumatic. NECK: Supple. HEART: Normal first and second heart sounds, no gallop or murmur. CHEST: Shows central trachea, equally reduced expansion, reduced air entry, vesicular breath sounds with diffuse scattered rhonchi. I could not appreciate any crepitation. ABDOMEN: Soft, nontender. NEUROLOGIC: She was grossly intact. Her intake and output are incompletely recorded. LABORATORY DATA: As of yesterday showed a white cell count 7000, hemoglobin 14, hematocrit 41, MCV 102 and platelet count 261,000. Her chemistry was also unremarkable with a BUN of 15 and creatinine 0.6. ASSESSMENT: 1. Acute hypoxic respiratory failure. 2. Chronic obstructive pulmonary disease exacerbation. 3. Questionable atypical pneumonia. 4. Nicotine dependence. 5. Alcohol dependence. 6. Cocaine abuse. 7. Marijuana abuse. PLAN: To continue with IV steroids. Continue with Zithromax. Continue with bronchodilators. Continue with alcohol withdrawal protocol. SHERMAN DR: Samina TID: [id number]
[2021-09-03 23:49] VITALS: BP 116/71
[2021-09-04 05:00] VITALS: BP 124/78
[2021-09-04] MEDS: methylPREDNISolone SOD SUCC PF 40 MG/ML VIAL. IV SCH ×2 (06:00→14:18)
[2021-09-04 06:46] LABS: HEMATOCRIT 39.4 % (36.0-47.0); HEMOGLOBIN 13.4 g/dL (12.0-15.5); RED BLOOD COUNT 3.89 x10^6/uL (3.50-5.40); WHITE BLOOD COUNT 10.6 x10^3/uL (4.0-11.0)
[2021-09-04 07:05] LABS: ALBUMIN 3.1 g/dL (3.4-5.0); ALBUMIN/GLOBULIN RATIO 0.9 (1.0-1.7); CALCIUM 8.1 mg/dL (8.5-10.1); CREATININE 0.6 mg/dL (0.6-1.0); GFR 107.6; POTASSIUM 3.7 mmol/L (3.5-5.1); TOTAL BILIRUBIN 0.1 mg/dL (0.2-1.0); TOTAL PROTEIN 6.5 g/dL (6.4-8.2)
[2021-09-04] MEDS: IPRATROPIUM/ALBUTEROL 20/100mcg/INH INHALER. INH SCH ×2 (08:00→12:00)
[2021-09-04] MEDS: AZITHROMYCIN 250 MG TABLET. PO SCH (08:08)
[2021-09-04] MEDS: LACTOBACILLUS RHAMNOSUS GG 1 CAPSULE. PO SCH (08:08)
[2021-09-04] MEDS: THIAMINE 100 MG TABLET. PO SCH (08:08)
[2021-09-04] MEDS: MULTIVITAMIN with MINERAL TABLET. PO SCH (08:08)
[2021-09-04] MEDS: FOLIC ACID 1 MG TABLET PO SCH (08:09)
[2021-09-04 10:16] VITALS: BP 130/86
[2021-09-04] MEDS: ACETAMINOPHEN/CODEINE 300/30MG TABLET PO PRN (14:25)
[2021-09-04 14:27] VITALS: BP 127/79
[2021-09-04] MEDS ORDERED: AZIT250T PO (14:42)
[2021-09-04] MEDS ORDERED: DEXA6TAB6 PO (14:42)
[2021-09-04] MEDS ORDERED: CEFD300C PO (14:42)
[2021-09-04] MEDS ORDERED: MONT10TA80 PO (14:42)
--- NOTE | 2021-09-04 15:26 | NUR ---
Discharge note Pt discharged at 1457 via ambulation accompanied by friend. Pt given written and verbal instructions with verbal statement of understanding received.
== END 2021-09-04 15:29 | disposition home or self-care (01) | DRG 193 ==
LOC: ER 09:01 → 1 SOUTH 11:28
PROVIDERS: ADMIT Internal Medicine; ATTEND Internal Medicine
DX: J18.9 Pneumonia, unspecified organism (principal); J96.01 Acute respiratory failure with hypoxia; J98.11 Atelectasis; J44.1 Chronic obstructive pulmonary disease with (acute) exacerbation; F10.20 Alcohol dependence, uncomplicated; F12.10 Cannabis abuse, uncomplicated; F14.10 Cocaine abuse, uncomplicated; F17.210 Nicotine dependence, cigarettes, uncomplicated; Z82.49 Family history of ischemic heart disease and other diseases of the circulatory system; Z82.5 Family history of asthma and other chronic lower respiratory diseases; Z87.11 Personal history of peptic ulcer disease; Z90.49 Acquired absence of other specified parts of digestive tract; Z90.710 Acquired absence of both cervix and uterus; K21.9 Gastro-esophageal reflux disease without esophagitis; Z20.822 Contact with and (suspected) exposure to COVID-19
CPT/HCPCS: 36415; 71045; 71275; 80053; 80307; 81001; 81025; 83605; 83880; 84484; 85025; 85027; 85379; 87040; 87426; 87804; 93005; 96361; 96365; 96375; J0456; J0696; J2060; J2920; J2930; J7050; Q9967; U0003; 99285-25; J7030

== ENCOUNTER 2021-10-21 14:55 | Emergency (ER) | payer SELFPAY ==
[~2021-10-21] VITALS: Ht 165.1 cm; Wt 78.2 kg
[~2021-10-21 14:55] MED LIST changes: +CEFD300C PO; +DEXA6TAB6 PO; +MONT10TA80 PO
[2021-10-21 15:04] VITALS: BP 126/70
--- NOTE | 2021-10-21 15:19 | PHYS DOC ---
Past History Past Medical History: COPD, GERD Additional Past Medical Histor: epigastritis, ulcer Past Surgical History: Appendectomy, Hysterectomy, Oophorectomy Smoking: Cigarettes, Less than 1pk/day Alcohol Use: Heavy Drug Use: Cocaine General Adult EDM: Chief Complaint: CHEST PAIN HPI: HPI: 43-year-old female presents with chest pain. She started to have left-sided chest pain yesterday evening while she was at work. It was a moderate to severe cramping sensation. She had to leave work and go home. She was doing fine at home. She went back to work this afternoon and had similar symptoms again. Patient admits to doing cocaine on Friday, 2 days ago. She is a cigarette smoker. No history of cardiac disease. She has never had a stress test or cardiac cath. Review of Systems: Review of Systems: Constitutional: Denies fever or chills Eyes: Denies change in visual acuity HENT: Denies nasal congestion or sore throat Respiratory: Denies cough or shortness of breath Cardiovascular: Chest pain GI: Denies abdominal pain, nausea, vomiting, bloody stools or diarrhea : Denies dysuria Musculoskeletal: Denies back pain or joint pain Integument: Denies rash Neurologic: Denies headache, focal weakness or sensory changes Endocrine: Denies polyuria or polydipsia Lymphatic: Denies swollen glands Psychiatric: Denies depression or anxiety Allergies: Allergies: Allergies Coded Allergies Type Severity Reaction Last Updated Verified No Known Drug Allergies 09/01/21 No Physical Exam: PE: Constitutional: Well developed, well nourished, no acute distress, non-toxic appearance. [] HENT: Normocephalic, atraumatic, bilateral external ears normal, oropharynx moist, no oral exudates, nose normal. [] Eyes: PERRLA, EOMI, conjunctiva normal, no discharge. [] Neck: Normal range of motion, no tenderness, supple, no stridor. [] Cardiovascular: Heart rate 60, regular rhythm, no murmur [] Lungs & Thorax: Bilateral breath sounds clear to auscultation [] Abdomen: Bowel sounds normal, soft, no tenderness, no masses, no pulsatile masses. [] Skin: Warm, dry, no erythema, no rash. [] Back: No tenderness, no CVA tenderness. [] Extremities: No tenderness, no cyanosis, no clubbing, ROM intact, no edema. [] Neurologic: Alert and oriented X 3, normal motor function, normal sensory function, no focal deficits noted. [] Psychologic: Affect normal, judgement normal, mood anxious. [] Current Patient Data: Vital Signs: Vital Signs Date Time Temp Pulse Resp B/P (MAP) Pulse Ox O2 Delivery O2 Flow Rate FiO2 10/21/21 15:04 98.1 90 22 126/70 (88) 96 Room Air EKG: EKG: Sinus rhythm, rate 60, normal axis, no ST elevation or depression, inverted P waves. [] Radiology/Procedures: Radiology/Procedures: [] Impressions: XR CHEST 1V History: Chest pain. Comparison: CTA chest 09/01/2021 Technique: AP radiograph of the chest. Findings: The lungs are adequately and symmetrically inflated. No airspace consolidation, pleural effusion or pneumothorax. The cardiomediastinal silhouette and pulmonary vasculature are within normal limits. No acute osseous abnormality. Dextroconvex curvature of the thoracic spine. Soft tissues are unremarkable. Impression: 1. No acute cardiopulmonary process. Electronically signed by: Oren Madrid MD (10/21/2021 3:32 PM) [facility] DICTATED AND SIGNED BY: OREN MADRID MD DATE: 10/21/21 1532 CC: MORRO PAYTON DO; PCP,UNKNOWN ~MTH0 0 Heart Score: C/O Chest Pain: Yes HEART Score for Chest Pain: HEART Score for Chest Pain Response (Comments) Value History Slighlty/Non-Suspicious 0 ECG Nonspecific Repolarizatio 1 Age >45 - < 65 1 Risk Factors 1 or 2 Risk Factors 1 Troponin < Normal Limit 0 Total 3 Risk Factors: Risk Factors: DM, Current or recent (<one month) smoker, HTN, HLP, family history of CAD, obesity. Risk Scores: Score 0 - 3: 2.5% MACE over next 6 weeks - Discharge Home Score 4 - 6: 20.3% MACE over next 6 weeks - Admit for Clinical Observation Score 7 - 10: 72.7% MACE over next 6 weeks - Early Invasive Strategies Course & Med Decision Making: Course & Med Decision Making Pertinent Labs and Imaging studies reviewed. (See chart for details) The patient's EKG is unremarkable except for inverted P waves. Her troponin is negative. Labs are unremarkable. I suspect the patient's discomfort is musculoskeletal or related to her drug use. I have advised that she not do cocaine anymore. She should also stop smoking. She is stable for discharge at this time. [] Parisa Disclaimer: Parisa Disclaimer: This electronic medical record was generated, in whole or in part, using a voice recognition dictation system. Departure Departure: Impression: Primary Impression: Chest pain Additional Impression: Cocaine use Disposition: HOME / SELF CARE / HOMELESS Condition: STABLE Referrals: PCP,UNKNOWN (PCP) Patient Instructions: Chest Pain (Nonspecific), [id number] MORRO PAYTON DO Oct 21, 2021 15:19
[2021-10-21 15:25] LABS: BASO % 1 % (0-3); EOS # 0.1 x10^3/uL (0.0-0.7); EOS % 3 % (0-3); HEMATOCRIT 40.8 % (36.0-47.0); HEMOGLOBIN 14.1 g/dL (12.0-15.5); LYMPH # 1.3 x10^3/uL (1.0-4.8); LYMPH % 31 % (24-48); MEAN CORPUSCULAR HEMOGLOBIN 35 pg (25-35); MEAN CORPUSCULAR HGB CONC 34 g/dL (31-37); MEAN CORPUSCULAR VOLUME 100 fL (79-100); MONO # 0.4 x10^3/uL (0.0-1.1); MONO % 9 % (0-9); NEUT # 2.5 x10^3uL (1.8-7.7); NEUT % 57 % (31-73); PLATELET COUNT 284 x10^3/uL (140-400); RED BLOOD COUNT 4.07 x10^6/uL (3.50-5.40); RED CELL DISTRIBUTION WIDTH 12.9 % (11.5-14.5); WHITE BLOOD COUNT 4.4 x10^3/uL (4.0-11.0)
[2021-10-21 15:33] LABS: CALCIUM 8.6 mg/dL (8.5-10.1); CREATININE 0.7 mg/dL (0.6-1.0); GFR 90.1; POTASSIUM 4.5 mmol/L (3.5-5.1)
--- NOTE | 2021-10-21 15:35 | RAD ---
XR CHEST 1V History: Chest pain. Comparison: CTA chest 09/01/2021 Technique: AP radiograph of the chest. Findings: The lungs are adequately and symmetrically inflated. No airspace consolidation, pleural effusion or p neumothorax. The cardiomediastinal silhouette and pulmonary vasculature are within normal limits. No acute osseous abnormality. Dextroconvex curvature of the thoracic spine. Soft tissues are unremarkabl e. Impression: 1. No acute cardiopulmonary process. Electronically signed by: Oren Madrid MD (10/21/2021 3:32 PM) [facility]
[2021-10-21 15:38] LABS: ALBUMIN 3.3 g/dL (3.4-5.0); ALBUMIN/GLOBULIN RATIO 1.1 (1.0-1.7); TOTAL BILIRUBIN 0.4 mg/dL (0.2-1.0); TOTAL PROTEIN 6.4 g/dL (6.4-8.2)
--- NOTE | 2021-10-21 16:52 | EKG ---
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
== END 2021-10-21 18:00 | disposition home or self-care (01) ==
LOC: ER 14:55
DX: R07.89 Other chest pain (principal); F14.10 Cocaine abuse, uncomplicated; J44.9 Chronic obstructive pulmonary disease, unspecified; K21.9 Gastro-esophageal reflux disease without esophagitis; F17.210 Nicotine dependence, cigarettes, uncomplicated
CPT/HCPCS: 36415; 71045; 80053; 84484; 85025; 93005; 99285

== ENCOUNTER 2021-12-24 15:29 | Emergency (ER) | payer SELFPAY ==
[~2021-12-24] VITALS: Ht 165.1 cm; Wt 81.8 kg
--- NOTE | 2021-12-24 16:10 | PHYS DOC ---
Past History Past Medical History: COPD, GERD Additional Past Medical Histor: epigastritis, ulcer (NEL LEBRON) Past Surgical History: Appendectomy, Hysterectomy, Oophorectomy (NEL LEBRON) Smoking: Cigarettes, Less than 1pk/day Alcohol Use: Occasionally Additional Alcohol Information: approx 4- 24 oz cans of beer, every other day Drug Use: Cocaine (NEL LEBRON) General Adult EDM: Chief Complaint: COUGH HPI: HPI: Patient is a 46 year old female who presents with 2-week history of cough and 1- week history of nasal congestion. Patient describes the mucus as "thick and sticky." Patient has not been around anyone with similar symptoms. She came to the emergency department today to see her mother, who is also a patient, and decided to get her nasal congestion checked out as well. Patient denies fever, chills, generalized weakness, productive cough, shortness of breath. She has no other complaints at this time. (NEL LEBRON) Review of Systems: Review of Systems: Constitutional: See HPI Eyes: Denies change in visual acuity, visual field deficits or discharge HENT: Denies ear pain, nasal congestion or sore throat Respiratory: See HPI Cardiovascular: Denies chest pain, palpitations or edema GI: Denies abdominal pain, nausea, vomiting, bloody stools or diarrhea : Denies dysuria or hematuria Musculoskeletal: Denies back pain or joint pain Integument: Denies rash or other skin lesion Neurologic: Denies headache, focal weakness or sensory changes (NEL LEBRON) Allergies: Allergies: Allergies Coded Allergies Type Severity Reaction Last Updated Verified No Known Drug Allergies 09/01/21 No (NEL LEBRON) Physical Exam: PE: Constitutional: Well developed, well nourished, no acute distress, non-toxic appearance. HENT: Normocephalic, atraumatic, bilateral external ears normal, oropharynx moist, no oral exudates, external nose without deformity or discharge. Eyes: PERRL, EOMI, conjunctiva normal, no discharge. Neck: Normal range of motion, no stridor. Skin: Warm, dry, no erythema, no rash. Extremities: No cyanosis, no clubbing, ROM intact, no edema. Neurologic: Alert and oriented x4, normal motor function, normal sensory function, no focal deficits noted. (NEL LEBRON) Current Patient Data: Vital Signs: Vital Signs Date Time Temp Pulse Resp B/P (MAP) Pulse Ox O2 Delivery O2 Flow Rate FiO2 12/24/21 15:41 98.1 66 16 107/68 (81) 96 Room Air (NEL LEBRON) Heart Score: C/O Chest Pain: No (NEL LEBRON) Course & Med Decision Making: Course & Med Decision Making Pertinent Labs and Imaging studies reviewed. (See chart for details) Patient is a 46-year-old female who presents with symptomology consistent with upper respiratory infection. Influenza testing was deferred in shared decision making, as she is out of the window for any Tamiflu treatment. At this time, I have no indication, as patient is presenting with less than 10 days of nasal congestion and no fever. Patient was given extensive counseling on supportive treatment measures. Patient states she has an appointment with her primary care physician in the morning. I advised that she keep her appointment with her primary care doctor tomorrow, who may advise alternative treatment plan. Return precautions are provided. Patient understands and is agreeable to discharge plan. (NEL LEBRON) Dragon Disclaimer: Dragon Disclaimer: This electronic medical record was generated, in whole or in part, using a voice recognition dictation system. (NEL LEBRON) Departure Departure: Impression: Primary Impression: Upper respiratory infection with cough and congestion Disposition: 01 HOME / SELF CARE / HOMELESS Condition: STABLE Referrals: PCP,NO (PCP) Patient Instructions: Upper Respiratory Infection, Adult, [id number] Additional Instructions: Follow the following supportive treatment measures: - Cool mist humidifier with plain water at bedside while you sleep - Mucinex (guaifenesin) per box instructions - Advil cold & flu per box instructions Keep your appointment with your primary care provider tomorrow morning. EMERGENCY DEPARTMENT GENERAL DISCHARGE INSTRUCTIONS Thank you for coming to [facility] ([facility]) today and trusting us with you care. We trust that you had a positive experience in our Emergency Department. If you wish to speak to the department management, you may call the director at [phone]. YOUR FOLLOW UP INSTRUCTIONS ARE FOLLOWS: 1. Follow up with your primary care doctor. If you do not have a primary doctor, please ask for a resource list of physicians or clinics that may be able to assist you with follow up care. 2. The emergency provider has interpreted your imaging studies, if any were ordered. The radiology training and development specialist also reviewed them. If there is a change in the findings, you will be notified in 48 hours when at all possible. 3. If a lab test or culture has been done, your results will be reviewed and you will be notified if you need a change in treatment. 4. Follow instructions verbalized to you and refer to the printouts if needed. ADDITIONAL INSTRUCTIONS AND INFORMATION: 1. Your care today has been supervised by a physician who is specially trained in emergency care. Many problems require more than one evaluation for a complete diagnosis and treatment. We recommend that you schedule your follow up appointment as recommended to ensure complete treatment of you illness or injury . If you are unable to obtain follow up care and continue to have a problem, or if your condition worsens, we recommend that you return to the ED. 2. We are not able to safely determine your condition over the phone nor are we able to give sound medical advice over the phone. For these safety reasons, if you call for medical advice we will ask you to come to the ED for further e valuation. 3. If you have any questions regarding these discharge instructions please call the ED at [phone]. SAFETY INFORMATION: In the interest of safety, wellness, and injury prevention; we encourage you to wear your seat belt, if you smoke; quite smoking, and we encourage family to use a protective helmet for bicycling and other sporting events that present an increased risk for head injury. IF YOUR SYMPTOMS WORSEN OR NEW SYMPTOMS DEVELOP, OR YOU HAVE CONCERNS ABOUT YOUR CONDITION; OR IF YOUR CONDITION WORSENS WHILE YOU ARE WAITING FOR YOUR FOLLOW UP APPOINTMENT; EITHER CONTACT YOUR PRIMARY CARE DOCTOR, THE PHYSICIAN WHOSE NAME AND NUMBER YOU WERE GIVEN, OR RETURN TO THE ED IMMEDIATELY. Attending Signature I have participated in the care of this patient and I have reviewed and agree with all pertinent clinical information above including history, exam, and recommendations. (EUNICE AGUIRRE DO) NEL LEBRON Dec 24, 2021 16:10 EUNICE AGUIRRE DO Dec 24, 2021 17:17
== END 2021-12-24 16:50 | disposition home or self-care (01) ==
LOC: ER 15:29
DX: J06.9 Acute upper respiratory infection, unspecified (principal); J44.9 Chronic obstructive pulmonary disease, unspecified; K21.9 Gastro-esophageal reflux disease without esophagitis; F17.210 Nicotine dependence, cigarettes, uncomplicated
CPT/HCPCS: 99281